=== PATIENT | female | born 1940 ===

== ENCOUNTER 2016-09-12 20:24 | Inpatient (IN) | payer MEDICARE, MEDICAID ==
[~2016-09-12] VITALS: Ht 152.4 cm; Wt 56.2 kg
[2016-09-12 20:20] VITALS: O2SAT 100
[~2016-09-12 20:24] MED LIST: ASPI81TA2 PO; CLOP75TA PO; GABA300C PO; INSU100C4 SQ; INSU3INS3 SUBQ; LINA5TAB PO; PREG150C PO; Succinylcholine Chloride 20 mg/mL 5 mL Inj ONE
[2016-09-12] MEDS ORDERED: Norepinephrine 8,000 mCg/250 mL NS Premix IV ONE (20:28)
[2016-09-12 20:58] LABS: Mean Corpuscular Hemoglobin 28.9 pg (27.0-35.0); Mean Corpuscular Volume 85.8 fL (81-100)
[2016-09-12 20:59] LABS: Platelet Count 201 bil/L (150-400)
[2016-09-12] MEDS ORDERED: Nitroglycerin 50,000 mcg/250 mL D5W Premix IV ONE (20:59)
[2016-09-12] MEDS ORDERED: Heparin 1,000 Units/500 mL NS Premix IV ONE ×2 (20:59→21:30)
[2016-09-12] MEDS ORDERED: Heparin 1,000 Unit/mL 10 mL Inj ONE (21:00)
[2016-09-12] MEDS ORDERED: Heparin 10,000 Unit/1,000 mL NS Premix IV ONE (21:00)
--- NOTE | 2016-09-12 21:07 | DRSVH ---
PROCEDURE: X-RAY CHEST ONE VIEW, PORTABLE ([id number]) INDICATIONS: CENTRAL LINE ET TUBE PLACEMENT TECHNIQUE: One view of the chest was acquired. COMPARISON: None. FINDINGS: Surgical changes and devices: Central venous catheter projects to distal SVC via a right subclavian approach. ET tube projects approximately 6.6 cm superior to the akbar. Lungs and pleura: No pleural effusions or pneumothorax. Lungs are clear. Mediastinum: Mediastinal contours appear normal. Heart size is normal. Bones and chest wall: No suspicious bony lesions. Overlying soft tissues appear unremarkable. IMPRESSION: ET tube 6.6 cm superior to the akbar. Dictated by: Anya Hunt MD, PhD on 09/12/2016 at 21:05 Approved by: Anya Hunt MD, PhD on 09/12/2016 at 21:06
[2016-09-12 21:13] LABS: INR 1.05 ratio
[2016-09-12 21:18] LABS: BASOPHILS % (AUTO) 1 % (0-3); EOSINOPHILS % (AUTO) 1 % (0-5); MONOCYTES % (AUTO) 5 % (4-12); NEUTROPHILS % (AUTO) 61 % (40-74)
--- NOTE | 2016-09-12 21:23 | ED.REPORT ---
HPI-Cardiac Arrest Date of Service September 12, 2016 ED Provider: Siddhartha Bright MD The pt is a 75 y/o female w/ a hx of HTN and diabetes presenting to the ED via EMS due to cardiac arrest. The pt called her daughter three days ago acting strangely and asking who she was talking to, which caused her daughter to call for a welfare check. EMS arrived at 1928 today and reports her looking around but was unresponsive. They have given her one round of epinephrine and bicarbonate. No paralytics were administered. Her family reports the pt living by herself and taking aspirin and Calvex. Nursing Notes Stated Complaint: STEMI Chief Complaint: Critical Care/Intubated Nursing Notes Reviewed: Yes ([employer], [employer] not reconciled) Allergies: Coded Allergies: codeine (Verified Allergy, Severe, headache and vomiting, 06/19/09) Uncoded Allergies: Nonsteroidal Anti-Inflammatory Agts (Allergy, Severe, rash (certain NSAID 's OK), 08/21/09) apples/oranges (Allergy, Severe, Unknown, 08/21/09) novacaine (Allergy, Severe, unknown- as a child had severe reaction, ) Scheduled Aspirin-Expunged Drug, Do Not Renew! (Aspirin-Expunged Drug, Do Not Renew!) 81 Mg Tab.chew 81 MG PO DAILY Clopidogrel-Expunged Drug, Do Not Renew! (Clopidogrel-Expunged Drug, Do Not Renew!) 75 Mg Tablet 75 MG PO DAILY Gabapentin-Expunged Drug, Do Not Renew! (Neurontin-Expunged Drug, Do Not Renew! ) 300 Mg Capsule 300 MG PO BID Insulin GLARGine-Expunged Drug, Do Not Renew! (Lantus-Expunged Drug, Do Not Renew!) 3 Ml Syringe 21 ML SQ HS Linagliptin-Expunged Drug, Do Not Renew! (Tradjenta-Expunged Drug, Do Not Renew! ) 5 Mg Tablet 5 MG PO DAILY Pregabalin-Expunged Drug, Do Not Renew! (Lyrica-Expunged Drug, Do Not Renew!) 150 Mg Capsule 100 MG PO DAILY Miscellaneous Medications Insulin ASPART-Expunged Drug, Do Not Renew! (Novolog-Expunged Drug, Do Not Renew !) 3 Ml Syringe 0 SUBQ sliding scale General Time Seen by Provider: 21:00 Chief Complaint Cardiac arrest in ED Hx Obtained From: Daughter, EMS Arrived By: Ambulance Onset Occurred: 1 - 4 hours ago Symptom Duration: Since onset Recent Healthcare: No recent hospitalization, Recent doctor visit Past Medical History Past Medical History HTN Diabetes Past Surgical History None reported Smoking History Unknown if Ever Smoker Social History Other Social History: Good social support Ambulatory Status Independent Review of Systems Unable to Obtain ROS Patient condition Physical Exam Initial Vital Signs Vital Signs (First) Date Time Temp Pulse Resp B/P Pulse Ox O2 Delivery O2 Flow Rate FiO2 09/12/16 20:20 100 BP 56/42 Pulse 128 SPO2 80 RR 18-20 Rectal temp 31.6 Initial VS: Reviewed (See paper chart), Vital signs abnormal Appearance / Presentation: Positive: Frail, Pale Respiratory / Chest: Breath sounds = bilat Resp Distress / Stridor: Positive: Resp distress severe Spontaneous breathing Lungs are clear Cardiovascular: Peripheral circulation NL Heart Rate / Rhythm: Positive: Tachycardia Unable to hear heart tones easily Weakly palpable femoral pulse Abdomen: Atraumatic, Soft, Non-tender Head / Eyes: Normocephalic, No periorbital swelling Pupils are fixed Neck: Atraumatic, Full range of motion Back: Atraumatic Skin: Intact, No swelling Feels cold Mental Status: Positive: Unresponsive No neurologic effort Rectum / Perineum: No lesions, No mass Nurse reports small amount of rectal bleeding Interpretation & Diagnostics Lab Results Interpretation Result Diagram: 09/12/16204409/12/162044 Test 09/12/16 20:45 09/12/16 20:50 09/12/16 20:56 White Blood Count 25.3th/mm3 (3.8-10.1) Red Blood Count 4.29mil/mm3 (3.90-5.20) Hemoglobin 12.4g/dL (12.0-15.6) Hematocrit 36.8% (35.0-46.0) Mean Corpuscular Volume 85.8fL (81-100) Mean Corpuscular Hemoglobin 28.9pg (27.0-35.0) Mean Corpuscular Hemoglobin Concent 33.7% (32.0-37.0) Red Cell Distribution Width 13.8% (12.3-15.4) Platelet Count 201bil/L (150-400) Neutrophils (%) (Auto) 61% (40-74) Lymphocytes (%) (Auto) 28% (14-46) Monocytes (%) (Auto) 5% (4-12) Eosinophils (%) (Auto) 1% (0-5) Basophils (%) (Auto) 1% (0-3) Band Neutrophils % 4% (1-5) Prothrombin Time 11.2sec (8.1-12.5) Prothromb Time International Ratio 1.05ratio Activated Partial Thromboplast Time 34.2sec (22.8-33.0) Sodium Level 141mEq/L (134-144) Potassium Level 4.6mEq/L (3.5-5.2) Chloride Level 100mEq/L (97-108) Carbon Dioxide Level 3mmol/L (18-29) Blood Urea Nitrogen 59mg/dL (8-27) Creatinine 3.01mg/dL (0.57-1.00) Estimat Glomerular Filtration Rate 22mL/min (>59) Glucose Level 741mg/dL (60-99) Lactic Acid Level 3.0mmol/L (0.4-2.0) Calcium Level 9.1mg/dL (8.5-10.1) Magnesium Level 2.9mg/dL (1.6-2.6) Total Bilirubin 0.5mg/dL (0.0-1.2) Aspartate Amino Transf (AST/SGOT) 222U/L (0-50) Alanine Aminotransferase (ALT/SGPT) 99U/L (0-32) Alkaline Phosphatase 249U/L (25-165) Troponin T 6.09ug/L (0.0-0.011) Total Protein 5.3g/dL (6.4-8.4) Albumin 2.8g/dL (3.4-5.0) Thyroid Stimulating Hormone (TSH) 3.210uIU/mL (0.450-4.500) Urine Color Yellow (YELLOW) Urine Appearance Turbid (CLEAR,HAZY) Urine pH 6.0 (5.0-8.0) Urine Specific [place] 1.025 (1.003-1.035) Urine Protein 100mg/dL (NEG,TRACE) Urine Glucose (UA) 1000mg/dL (NEGATIVE) Urine Ketones 80mg/dL (NEGATIVE) Urine Occult Blood Large (NEGATIVE) Urine Nitrite Negative (NEGATIVE) Urine Bilirubin Negative (NEGATIVE) Urine Urobilinogen Normalmg/dL (NORMAL) Urine Leukocyte Esterase Trace (NEGATIVE) Urine RBC 3-10/hpf (0-2) Urine WBC 11-50/hpf (0-5) Urine Epithelial Cells Few/hpf (NONE-MOD) Urine Crystals None seen (NONE SEEN) Urine Bacteria Many/hpf (NONE-FEW) Urine Hyaline Casts None/lpf (NONE) Urine Granular Casts None seen (NONE SEEN) Urine Waxy Casts None seen (NONE SEEN) Urine Red Blood Cell Casts None seen (NONE SEEN) Urine White Blood Cell Casts None seen (NONE SEEN) Urine Mucus None seen (None Seen) Urine Trichomonas None seen (NONE SEEN) Urine Yeast None (NONE SEEN) Urinalysis Comment None Urine Culture Reflexed Indicated Hold [place] Top Tube Received (Received) Lab Results Interpretation: CBC severe leukocytosis CMP severe metabolic acidosis, renal failure, severe hyperglycemia-this is a component of DKA Troponin severely elevated Lactic acid elevated blood cultures 2 pending Urinalysis is returned with markers of infection ECG Interpretation ECG Interpretation: Inferior STEMI Rate 71 Normal sinus rhythm Time: 21:01 Interpreted by: ED physician X-Ray Chest Interpretation Chest Xray Interpretation: IMPRESSION: ET tube 6.6 cm superior to the akbar. Dictated by: Anya Hunt MD, PhD on 09/12/2016 at 21:05 Approved by: Anya Hunt MD, PhD on 09/12/2016 at 21:06 View: Portable, 1 view Interpretation / Wet Read by: Interpret - Radiologist Procedures Central Line Placement Time: 20:39 Procedure Performed by: ED physician Consent / Setup / Site Prep: Informed consent provided, Consent from patient , Time-out performed, Oxygen administered, Pulse oximeter applied, environmental monitoring specialist applied, Hand hygiene observed, Standard surgical scrub, Sterile drapes applied, Position supine Skin Preparation Agent: Hibiclens - Chlorhexidine Local Anesthesia: Other Procedural Sedation/Analgesia: Sedation: Other Side / Location / Ultrasound: Subclavian right Catheter / Lumen / Technique: Triple lumen, Seldinger technique Central Line Tip Location: Cath tip good position in the SVC Post-Procedure / Complications: Antibiotic oint applied, Dressing placed, Condition improved, Tolerated procedure well, Patient stable Re-Eval/Medical Decision Med Decision/Clinical Course This is a 75-year-old female from all history is obtained via EMS in the family. The family consists of 2 daughters and the patient was last known normal 1 month ago, and lives up her upper. Apparently several days ago she called one daughter with a very strange phone call and then hung up. The daughter then told the second daughter about that phone call today, so the second daughter which should follow-up and see the patient was okay-but the patient did not respond any phone calls, so 911 was contacted perform a welfare check. When EMS arrived the patient had her eyes open looking around but was altered, not able to answer any questions, they cannot feel any pulses. We will , they initiated CPR. A Chaparro airway was placed, the patient received epi 1, bicarbonate 1, and pulses were regained, but the patient remained altered. On arrival, the patient is being ventilated via Chaparro airway with a positive end- tidal CO2 waveform, but remains unresponsive. We had a hard time defining initial pulses, CPR was briefly reassumed-and then pulses were obtained. The patient could have spontaneous respirations, slightly tachypneic, had good end-tidal CO2, but remains profoundly hypotensive with initial blood pressures in the 50s. She felt cold, and ultimately a rectal temperature was obtained that was profoundly hypothermic. An EKG was obtained on arrival and demonstrates an inferior ST segment elevation ID, so a STEMI process was activated. She received warmed fluids through the level I, a bear hugger, and with the hypotension was started on a nor epi drip. She had an IO and a marginal IV. Possibly, and I placed a right subclavian central line for better access. Respiratory is unable to obtain an ABG due to the hypotension and cold extremities. Anesthesia came in and was able place of a line, at this point the patient was warming up, her blood pressures are improving regarding getting a good measurable pulse ox. Chest x-ray demonstrated no complications from the central line placement and the lines to be in good position. A Portillo was placed, the time of Portillo was being placed there was a small amount of rectal blood present of uncertain significance. The patient remained unresponsive throughout. I performed a rapid sequence intubation and replaced the Chaparro airway with an endotracheal tube without difficulty. Cardiology arrived, we discussed the situation with the family, elected to pursue Pellet Post Inspector intervention in this setting. The patient was taken of the labor mediator prior to full results of laboratory studies. The patient was noted to be hyperglycemic by EMS, and a recheck in the department remained hyperglycemic. I called the cardiac labor mediator with results as the labs returned and demonstrate severe metabolic acidosis, probable component of DKA as well as lactic acidosis , a normal potassium (that will likely require replacement as the acidosis resolves), and with his renal failure with probable acute kidney injury is a likely etiology. The patient's troponin is also severely elevated. I discussed the case with the on-call hospitalist. TSH was normal. The hypothermia protocol was not initiated initially-admits to trying to sort out if the unintentional hyperthermia and it occurred may eventually been the reason for the decreased mental status, so the patient warmed up to go to the Pellet Post Inspector and is improving. Given the unusual circumstances I am deferring Further application and re-initiation of hypothermia to the hospitalist following the labor mediator process, and it may be decided as to whether or not there may be neurologic improvement as the patient is further managed. Of note the family indicates the patient has no torso leaning noncompliant with medications and they may not be taking any of her diabetic medications. Source of Hx: Old records, EMS Consultation : Referral / Consult Name: Harpreet Llamas MD Consulted With: Hospitalist Call Returned at: 21:31 Wall Attendant: Will see patient, Agrees with eval, Agrees with plan, Accepts admit Differential Diagnosis: Positive: Cardiopulmonary arrest, Myocardial infarction , Negative: Abdominal aortic aneurysm, Overdose, Tension pneumothorax, Traumatic cardiac arrest Counseled Regarding: Diagnosis, Lab results, Need for admission Discharge & Departure Impression: Primary Impression: Cardiac arrest Additional Impressions: STEMI (ST elevation myocardial infarction) Involved coronary artery: other anterior wall coronary artery Qualified Code : I21.09 - ST elevation (STEMI) myocardial infarction involving other coronary artery of anterior wall Hypothermia Encounter type: initial encounter Qualified Code: T68.XXXA - Hypothermia, initial encounter Rectal bleeding Hyperglycemia DKA (diabetic ketoacidoses) Diabetes mellitus type: other specified (including MATT) Metabolic acidosis Lactic acidosis Elevated troponin Urinary tract infection Urinary tract infection type: acute cystitis Hematuria presence: without hematuria Qualified Code: N30.00 - Acute cystitis without hematuria Acute kidney injury Disposition: ADMITTED TO HOSPITAL All VS Reviewed: Yes Condition: Stable Referrals: Jenni Ortiz PA-C (PCP) Crit Care Except Billable Proc Time Spent: 30-74 minutes Services Performed: Patient management by me, Time spent at bedside, Reviewing test results, Reviewing imaging, Discussing patient care, Documentation in record, Time with fam/surrogate, Other Scribe Attestation Portions of this note were transcribed by Francisco Javier Moseley. I, Dr. Bright personally performed the history, physical exam and medical decision-making; I reviewed and confirmed the accuracy of the information in the transcribed note. Signed by : Villa Apaircio, 09/12/16 and 2002. Siddhartha Bright MD September 12, 2016 21:23 Francisco Javier Moseley September 12, 2016 21:57
[2016-09-12 21:36] LABS: APPEARANCE,URINE TURBID (CLEAR,HAZY); COLOR,URINE YELLOW (YELLOW); OCCULT BLOOD,URINE LARGE (NEGATIVE); UROBILINOGEN,URINE NORMAL (NORMAL)
[2016-09-12 21:37] VITALS: BP 126/83; PULSE 86; RESP 18; O2SAT 97
[2016-09-12 21:39] LABS: Magnesium 2.9 mg/dL (1.6-2.6)
[2016-09-12] MEDS ORDERED: Sodium Bicarb (50 mEq) 8.4% 1 mEq/mL 50 mL Syringe ONE ×3 (21:47→22:07)
[2016-09-12 21:48] LABS: TROPONIN T 6.09 ug/L (0.0-0.011)
[2016-09-12] MEDS ORDERED: fentaNYL-PF 50 mCg/mL 2 mL Inj ONE (21:51)
[2016-09-12] MEDS ORDERED: Polyethylene Glycol (PEG) 17 Gm Powder PO PRN (22:30)
[2016-09-12] MEDS ORDERED: Ondansetron 2 mg/mL 2 mL Inj IVPUSH PRN ×2 (22:30→23:30)
[2016-09-12] MEDS ORDERED: Alum-Mag Hydrox-Simeth 30 mL Suspension PO PRN (22:30)
[2016-09-12] MEDS ORDERED: 0.9% Sodium Chloride 1,000 ML IV SCH (22:30)
--- NOTE | 2016-09-12 22:46 | PCM.HPMED ---
Subjective Date of Service September 12, 2016 Primary Provider: Admitting Physician: Rodriguez Condon MD Primary Care Physician: Jenni Ortiz PA-C Attending Physician: Rodriguez Condon MD Admit Status: From the Emergency Department, Full Admit, Critical Care Chief Complaint: Cardiac Arrest History of Present Illness: Fernanda Mcgee is a 75 yo female with Hypertension, Fibromyalgia, Chronic anemia and diabetes presenting to [facility] emergency department via EMS due to cardiac arrest. The pt called her daughter three days ago and patient was acting strangely and asking who she was talking to and hanged up. Son tried calling her home but no answer so the daughter in law called for a welfare check. The son last spoke to her on Mother's Day and she mentioned she was sick but did not give any further details. EMS arrived at 1928 today and reports her looking around but was unresponsive. CPR was initiated. They have given her one round of epinephrine and bicarbonate. No paralytics were administered. She was intubated in the field and brought to [facility] for evaluation Patient smokes daily and is a Diabetic on insulin. Lives alone. No history of illicit drugs or Alcoholism Case discussed with Dr Handley, EKG showed ST elevation triggering a STEMI alert and Dr Mckeon took patient to the manager labor delivery. Several labs abnormalities noted with hyperglycemia and Renal failure noted. Patient admitted to the ICU Review of Systems: unable to obtained due to sedation Allergies Coded Allergies: codeine (Verified Allergy, Severe, headache and vomiting, 06/19/09) Uncoded Allergies: Nonsteroidal Anti-Inflammatory Agts (Allergy, Severe, rash (certain NSAID 's OK), 08/21/09) apples/oranges (Allergy, Severe, Unknown, 08/21/09) novacaine (Allergy, Severe, unknown- as a child had severe reaction, ) Home Medications From [facility], not yet confirmed Fernanda Mcgee [id number] 1940 08/07/2015 09:40 AM 05/01 allopurinol 100 mg tablet take 1 Tablet by oral route every morning aspirin 81 mg tablet,delayed release take 1 tablet by oral route every day Crestor 10 mg tablet take 1 tablet by oral route every day gabapentin 300 mg capsule take 2 capsule by oral route 3 times every day Invokana 100 mg tablet TAKE 1 TABLET BY MOUTH EVERY DAY Lantus Solostar 100 unit/mL (3 mL) subcutaneous insulin pen inject 20 units subQ at bedtime Lyrica 150 mg capsule take 1 capsule by oral route 2 times every day meloxicam 7.5 mg tablet take 1 tablet by oral route every day as needed Novolog Flexpen 100 unit/mL subcutaneous inject 20 units with each meal Tradjenta 5 mg tablet take 1 tablet by oral route every day PMH Diabetes Type 2 with peripheral neuropathy Hypertension Carpal tunnel Fibromyalgia Chronic anemia PVD with claudication Nicotine dependence with ongoing smoking . Surgical History Left Total Hip replacement Family History unable to be obtained due to sedation Social History Hx Alcohol Use: No Hx Substance Use: No Hx Tobacco Use: Yes Smoking Status: Heavy Tobacco Smoker Living Arrangement: Alone Exam Vital Signs Vital Sign - Last Date Time Temp Pulse Resp B/P Pulse Ox O2 Delivery O2 Flow Rate FiO2 09/12/16 21:37 86 18 126/83 97 Mechanical Ventilator Exam General: Sedated on Ventilator Eyes: PERRLA, Scleral Anicteric ET tube in place Mouth: Mouth Normal, Mucous Membranes Moist/[place] Neck: Supple, no Thyromegaly, trachea central. Chest & Lungs: Clear to auscultation & percussion, No adventitious breath sounds, no crackles, no wheeze Cardiovascular: Normal S1, Normal S2, No Murmurs/Rubs/Gallops, Regular Rate/ Rhythm, (No JVD, no peripheral edema) Pulses: Radial (present and equal), Dorsalis Pedi (present and equal) Abdomen: Soft, Non-tender, Non-distended, Normoactive bowel tones. Musculoskeletal: Unremarkable. Normal range of motion, no swollen or erythematous joints Extremities: No edema, no cyanosis, no clubbing. Skin: No rashes. Warm and dry, no erythematous areas Neurological: Sedated but pupil pinpoint and fixed with deviation to the left and upwards Lymphatic: Lymph nodes Cervical and Axillary not palpable Lab and Diagnostics Labs Laboratory Tests Test 09/12/16 20:45 09/12/16 20:50 09/12/16 20:55 09/12/16 20:56 White Blood Count 25.3th/mm3 (3.8-10.1) Red Blood Count 4.29mil/mm3 (3.90-5.20) Hemoglobin 12.4g/dL (12.0-15.6) Hematocrit 36.8% (35.0-46.0) Mean Corpuscular Volume 85.8fL (81-100) Mean Corpuscular Hemoglobin 28.9pg (27.0-35.0) Mean Corpuscular Hemoglobin Concent 33.7% (32.0-37.0) Red Cell Distribution Width 13.8% (12.3-15.4) Platelet Count 201bil/L (150-400) Neutrophils (%) (Auto) 61% (40-74) Lymphocytes (%) (Auto) 28% (14-46) Monocytes (%) (Auto) 5% (4-12) Eosinophils (%) (Auto) 1% (0-5) Basophils (%) (Auto) 1% (0-3) Band Neutrophils % 4% (1-5) Prothrombin Time 11.2sec (8.1-12.5) Prothromb Time International Ratio 1.05ratio Activated Partial Thromboplast Time 34.2sec (22.8-33.0) Sodium Level 141mEq/L (134-144) Potassium Level 4.6mEq/L (3.5-5.2) Chloride Level 100mEq/L (97-108) Carbon Dioxide Level 3mmol/L (18-29) Blood Urea Nitrogen 59mg/dL (8-27) Creatinine 3.01mg/dL (0.57-1.00) Estimat Glomerular Filtration Rate 22mL/min (>59) Glucose Level 741mg/dL (60-99) Lactic Acid Level 3.0mmol/L (0.4-2.0) Calcium Level 9.1mg/dL (8.5-10.1) Magnesium Level 2.9mg/dL (1.6-2.6) Total Bilirubin 0.5mg/dL (0.0-1.2) Aspartate Amino Transf (AST/SGOT) 222U/L (0-50) Alanine Aminotransferase (ALT/SGPT) 99U/L (0-32) Alkaline Phosphatase 249U/L (25-165) Troponin T 6.09ug/L (0.0-0.011) Total Protein 5.3g/dL (6.4-8.4) Albumin 2.8g/dL (3.4-5.0) Thyroid Stimulating Hormone (TSH) 3.210uIU/mL (0.450-4.500) Urine Color Yellow (YELLOW) Urine Appearance Turbid (CLEAR,HAZY) Urine pH 6.0 (5.0-8.0) Urine Specific [place] 1.025 (1.003-1.035) Urine Protein 100mg/dL (NEG,TRACE) Urine Glucose (UA) 1000mg/dL (NEGATIVE) Urine Ketones 80mg/dL (NEGATIVE) Urine Occult Blood Large (NEGATIVE) Urine Nitrite Negative (NEGATIVE) Urine Bilirubin Negative (NEGATIVE) Urine Urobilinogen Normalmg/dL (NORMAL) Urine Leukocyte Esterase Trace (NEGATIVE) Urine RBC 3-10/hpf (0-2) Urine WBC 11-50/hpf (0-5) Urine Epithelial Cells Few/hpf (NONE-MOD) Urine Crystals None seen (NONE SEEN) Urine Bacteria Many/hpf (NONE-FEW) Urine Hyaline Casts None/lpf (NONE) Urine Granular Casts None seen (NONE SEEN) Urine Waxy Casts None seen (NONE SEEN) Urine Red Blood Cell Casts None seen (NONE SEEN) Urine White Blood Cell Casts None seen (NONE SEEN) Urine Mucus None seen (None Seen) Urine Trichomonas None seen (NONE SEEN) Urine Yeast None (NONE SEEN) Urinalysis Comment None Urine Culture Reflexed Indicated Hold [place] Top Tube Received (Received) Received (Received) Microbiology 09/12/16 Blood Culture, Received Pending 09/12/16 Urine Culture, Received Pending Result Diagram: 09/12/[id number]/12/162044 X-Rays, CTs and MRIs X-RAY CHEST ONE VIEW, PORTABLE 09/12 IMPRESSION: ET tube 6.6 cm superior to the akbar. Dictated by: Anya Hunt MD, PhD on 09/12/2016 at 21:05 Approved by: Anya Hunt MD, PhD on 09/12/2016 at 21:06 Assessment & Plan Fernanda Mcgee is a 75 yo female with Hypertension, Fibromyalgia, Chronic anemia and diabetes presenting to [facility] emergency department via EMS due to cardiac arrest. 1. Acute Encephalopathy. Present on admission Unresponsive likely due to anoxic encephalopathy. Etiology also metabolic from DKA and subsequent Cardiac arrest - continue Cooling protocol and monitor neurologically - treatment will be to treat the underlying cause - consider EEG and Neurology consult after cooling protocol 2 ST Elevation Inferior Myocardial infarction s/p Cardiac Arrest. Present on admission Three Vessel disease as per discussion with Dr Mckeon. - continue management as per Dr Mckeon and Cardiology team - referral for bypass surgery if when stable 3 Diabetic Ketoacidosis with Diabetes Type 2. Present on admission Poor control with patient on Lantus and Novolog as outpatient - DKA Insulin protocol - checking A1c - checking Anion gap every 4 hours, when gap closed then will discontinue Insulin drip 4 Acute Hypoxic Respiratory Failure. Present on admission Due to Cardiac arrest. No evidence of Pulmonary infection or edema - continue Ventilator support - Versed and Fentanyl drips - ABG PRN with adjustments 5 Urinary tract infection. Present on admission - Blood cultures, Urine culture - continue Ceftriaxone 1 grams IV daily 6 Acute Kidney Injury with metabolic acidosis. Present on admission Likely pre renal azotemia with possible Acute tubular necrosis. Possible Chronic kidney disease due to Diabetic nephropathy and Hypertensive Nephrosclerosis - continue bicarb drip due to contrast exposure - continue Bicarb drip - consider Nephrology consult 7 Elevated transaminitis. Present on admission Likely due to shock liver - continue to monitor levels 8 Nicotine Dependence. - will cemetery counselor patient concerning cessation when extubated - Acetaminophen as needed for mild pain/fever/headache - Bowel regimen as needed - Antiemetic as needed Patient admitted under inpatient status with expected length of stay > 2 midnights for severity of present symptoms, complexities of treatment plan and risk for adverse event . Resuscitation Status: CPR: Attempt Resuscitation Time spent 1 hour critical time spend not including procedure time Harpreet Llamas MD September 12, 2016 22:46
[2016-09-12] MEDS ORDERED: fentaNYL 2,500 mCg/250 mL Premix IV ONE (22:59)
[2016-09-12 23:15] VITALS: BP 173/109; PULSE 90; RESP 18
[2016-09-12] MEDS ORDERED: Insulin Human REGular 300 Unit/3 mL Inj IV PRN (23:20)
[2016-09-12] MEDS ORDERED: Dextrose 10% 250 ML IV PRN (23:25)
[2016-09-12] MEDS: cefTRIAXone Inj 1,000 MG in Dextrose 5% Minibag Plus 50 ML IV SCH (23:27)
[2016-09-12] MEDS ORDERED: Sodium Bicarb 8.4% Inj 150 MEQ in Dextrose 5% 1,000 ML IV SCH (23:28)
[2016-09-12] MEDS ORDERED: 0.9% Sodium Chloride 250 ML IV PRN (23:28)
[2016-09-12] MEDS ORDERED: 0.9% Sodium Chloride 1,000 ML IV PRN (23:28)
[2016-09-12 23:30] VITALS: BP 91/44; PULSE 90; RESP 20; O2SAT 98
[2016-09-12] MEDS ORDERED: Atropine 1 mg/10 mL (Code) Syringe IVPUSH PRN (23:30)
[2016-09-12] MEDS ORDERED: fentaNYL-PF 50 mCg/mL 2 mL Inj IV PRN (23:30)
[2016-09-12] MEDS: Insulin Human REGular 100 Units/100 mL NS IV SCH ×2 (23:58)
[2016-09-13] VITALS (16 sets, daily range): BP systolic 81–128; BP diastolic 31–64; PULSE 56–90; RESP 2–20; O2SAT 92–100
--- NOTE | 2016-09-13 00:11 | ABG ---
DateTimeAnalyzed 00:07:00 -_ pH ____7.008 - 7.350 7.450 pCO2 ___23.1__ -mmHg 35.0 45.0 pO2 168 -mmHg 69.0 116 HCO3- ____5.5__ -mmol/L 22.0 26.0 ABE __-25.0__ -mmol/L -2.0 2.0 tHb ___12.7__ -g/dL O2Hb ___95.8__ -% COHb ____1.3__ -% MetHb ____1.4__ -% sO2 ___98.5__ -% FIO2 ___60.0__ -% PEEP ____6.0__ -cmH2O Set_RR ___20.0__ -b/min Vt __380.0__ -L Drawn By MK - Date/Time Notified____ 00:10:00 -_ Spontaneous_RR ___20.0__ -b/min Oxygen Device 1 VENTILATOR - Notified By MK - Notified Whom _Fuimaono - B 760 -mmHg tO2 ___17.4__ -Vol% OrderingPhysicianInitials mf - Alirio test N/A -
[2016-09-13] MEDS ORDERED: Norepinephrine 8,000 mCg/250 mL NS Premix IV ONE (00:23)
[2016-09-13] MEDS: Cisatracurium 200,000 mCg/100 mL NS IV SCH ×4 (00:40→09:32)
[2016-09-13] MEDS ORDERED: D5W IV PRN (00:40)
[2016-09-13] MEDS ORDERED: fentaNYL-PF 50 mCg/mL 2 mL Inj IV PRN (00:40)
[2016-09-13] MEDS: NS IV SCH ×4 (00:40→18:50)
[2016-09-13] MEDS: FENTANYL IV SCH ×4 (00:40→18:50)
[2016-09-13] MEDS ORDERED: NITROGLYCERIN 50 MG/250 ML IV PRN (00:40)
[2016-09-13] MEDS ORDERED: 0.9% Sodium Chloride 500 ML IV PRN (00:40)
--- NOTE | 2016-09-13 01:30 | PCM.ADCARE ---
Advance Care Planning Note Purpose of Encounter: Active Diagnoses: Cardiac arrest and STEMI with triple vessel coronary disease Respiratory Failure on the ventilator Poor controlled Diabetes with DKA Acute Kidney Injury These active diagnoses are sufficient risk that focused discussion on advance car planning is indicated in order to allow the patient to thoughtfully consider personal goals of care and if situations arise that prevent the ability to personally give input to insure appropriate representation of their personal desires through documentation or informed surrogate decision makers Parties in Attendance: son (Jean-Pierre Turpin) and me Decisional Capacity: Good Goals of Care Determinations: I reviewed all the multiple organ failures and poor prognosis associated with all conditions mentioned above. Son is a former [employer] and EMT and is familiar with the current situation Patient has not assigned any power of staff attorney and the son feels he knows her well and patient would not want to be resuscitation and placed on any life support. Jean-Pierre wish for patient to be DNR. He will discuss any further decisions with the other siblings CODE STATUS: DO NOT RESUSCITATE Time Spent Adv.Care Planning: Total time spent [id number] in education and discussion directly related to Advance Care Plannin minutes Harpreet Llamas MD September 13, 2016 01:30
[2016-09-13] MEDS ORDERED: Amiodarone 150 mg/100 mL D5W Premix IV ONE (01:58)
[2016-09-13] MEDS ORDERED: Amiodarone 360 mg/200 mL D5W Premix IV ONE (01:59)
[2016-09-13] MEDS ORDERED: Amiodarone 150 mg/100 mL D5W IV ONE (02:20)
[2016-09-13] MEDS: Amiodarone 360 mg/200 mL D5W IV SCH ×3 (02:23→14:07)
[2016-09-13 03:06] LABS: Mean Corpuscular Hemoglobin 28.7 pg (27.0-35.0); Mean Corpuscular Volume 82.7 fL (81-100)
[2016-09-13 03:14] LABS: INR 1.26 ratio
--- NOTE | 2016-09-13 03:24 | NUR ---
CCU Admit note/hypothermia protocol (cooling phase) Seen patient at general labor s/p left heart cath, assisted general labor staff to transport pt to diagnostic for head ct, pt then moved to ccu rm 2017 @2300, started cooling protocol at 2310, pt already hypothermic core temp 31.5 C, no chilled NS given. Hypotensive sbp 80-90's, already on levo gtt, Pt opens eyes with abnormal gaze (looking far left), not following any commands at all, moves LE non-purposeful, garrido draining with low uo, arterial blood glucose 500's, Rt groin puncture site with CDI drsg, no hematoma, distal pulse weak and palpable. P: abg at midnight pH 7.008, pc02 23, p02 168, hc03 5.5, cvp low at 3, I: notified Hospitalist of results, started bicarb gtt 1.2 mls/kg/hr, vent set rate decreased to 14, NS 500 cc bolus started to keep cvp>10, started fentanyl gtt, bis 70's, added low dose propofol gtt sedation, inserted ogt to LIS, started insulin gtt per dka protocol. E: RASS -3, bp labile P: around 0200 pt has frequent ectopy (bigeminal, couplets, triplets) I: notified hospitalist w/ new order, given amiodarone 150mg bolus then at 1mg/min. Addendum: 09/13/16 at 0500 by BRI CID RN Addendum: P: labs at 0241 resulted with K 2.5, Na 149, anion gap 35,abg @ 0416 resulted with pH 6.966, pc02 27, p02 258, hc03 5.9. I: notified hospitalist of labs with new orders, given 1 amp bicarb IVP & increased bicarb gtt to 100 ml/hr, started kcl 40 meq IVP, vent changes per PHLEBOTOMY COORDINATOR (fio2 down to 0.30, increase VT to 400).
[2016-09-13] MEDS: Norepinephrine 8,000 mCg/250 mL NS Premix IV PRN ×7 (03:40→22:37)
[2016-09-13 04:17] LABS: Magnesium 2.4 mg/dL (1.6-2.6)
[2016-09-13] MEDS ORDERED: Potassium Chloride 40 mEq/100 mL Premix IV ONE (04:21)
--- NOTE | 2016-09-13 04:22 | ABG ---
DateTimeAnalyzed 04:18:00 -_ pH ____6.966 - 7.350 7.450 pCO2 ___27.4__ -mmHg 35.0 45.0 pO2 258 -mmHg 69.0 116 HCO3- ____5.9__ -mmol/L 22.0 26.0 ABE __-24.7__ -mmol/L -2.0 2.0 tHb ___10.1__ -g/dL O2Hb ___96.1__ -% COHb ____1.2__ -% MetHb ____1.6__ -% sO2 ___98.9__ -% FIO2 ___40.0__ -% PEEP ____8.0__ -cmH2O Set_RR ___14.0__ -b/min Vt __380.0__ -L Drawn By MK - Spontaneous_RR ___14.0__ -b/min Oxygen Device 1 VENTILATOR - Notified Whom Dr Fuimaono - B 761 -mmHg tO2 ___14.3__ -Vol% OrderingPhysicianInitials mf - Alirio test N/A -
[2016-09-13] MEDS ORDERED: KCl 40 mEq/100 mL IV Premix (K < 3 & Creat 2.1 - 2.9) IV ONE (04:30)
[2016-09-13 04:32] LABS: TROPONIN T 9.13 ug/L (0.0-0.011)
[2016-09-13] MEDS ORDERED: Sodium Bicarb (50 mEq) 8.4% 1 mEq/mL 50 mL Syringe ONE (04:40)
[2016-09-13] MEDS: Insulin Human REGular 100 Units/100 mL NS IV SCH ×6 (04:49→23:54)
[2016-09-13] MEDS ORDERED: Sodium Bicarb (50 mEq) 8.4% 1 mEq/mL 50 mL Syringe IVPUSH ONE (04:55)
--- NOTE | 2016-09-13 08:03 | CS94 ---
[place] [id number] DIAGNOSTIC CARDIAC CATHETERIZATION PATIENT: SANDRA BONNER : 1940 MR#: [id number] ADMIT: 09/12/2016 JOB ID: [id number] SERVICE DATE: 09/12/2016 PATIENT PROFILE: The patient is a 75 years old woman with history of diabetes mellitus and smoker. She presented with [id number] cardiopulmonary arrest. EKG showed acute inferoposterior myocardial infarction. PROCEDURE: 1. Retrograde left heart catheterization. 2. Selective coronary angiography. VASCULAR CLOSURE DEVICE: None. COMPLICATIONS: None. METHOD: Retrograde left heart catheterization was performed from the right groin under 1% lidocaine local anesthesia using a 6-Faroese sheath. Selective coronary angiogram was performed in multiple projections, including cranial and caudal angulations with hand injected contrast via JL4 and JR4 catheters. The JR4 catheter was used for left ventricular pressures. Right femoral angiogram was performed before sheath removal. Hemostasis was achieved by manual compression. The patient tolerated the procedure well. She was transferred to intensive care unit in stable condition. TOTAL CONTRAST USED: 35 cc. FLUOROSCOPY TIME: 2.7 minutes. TOTAL RADIATION DOSE: 86 milligray. RESULTS: 1. Selective coronary angiography: a. The left anterior descending artery and circumflex artery have common ostia. b. The left anterior descending artery is transapical and has long, 70 % to 80% stenosis in the mid portion. c. The codominant circumflex artery has diffuse severe stenosis with 80% to 90% stenosis in the mid and distal portions. The first obtuse marginal branch has 80% stenosis in the proximal portion. d. The codominant right coronary artery has diffuse severe stenosis of 80% to 90% stenosis in the proximal and mid portions. 2. Left ventricular pressure is 169/7 mmHg. Aortic pressure is 157/60 mmHg. 3. Left ventricular end-diastolic pressure is 17 mmHg. 4. There is a 10 mm pressure gradient across the aortic valve. 5. The right common femoral angiogram demonstrated severe eccentric 80% stenosis of the right common femoral artery with heavy calcification. The right superficial femoral artery has severe 95% stenosis in the proximal portion. The right profunda artery has minor irregularity. CONCLUSION: 1. Severe triple-vessel coronary artery disease. 2. There is a 10 mm pressure gradient across the aortic valve. 3. Left ventricular end-diastolic pressure is 17 mmHg. 4. Severe stenosis of the right common femoral artery and proximal portion of the right superficial femoral artery. MTDD
--- NOTE | 2016-09-13 08:32 | DRSVH ---
PROCEDURE: CT BRAIN WITHOUT CONTRAST ([id number]) INDICATIONS: cardiac arrest TECHNIQUE: Noncontrast 4.5 mm thick angled axial sections acquired from the foramen magnum to the vertex, with c oronal reformats. COMPARISON: None. FINDINGS: Image quality: Excellent. CSF spaces: Basal cisterns are patent. No extra-axial fluid collections. The ventricles are symmet isa in size and shape. Brain: No intracranial bleeds or masses. There is cerebral volume loss for age, with resultant vent ricular and sulcal prominence. There are periventricular and deep white matter chronic small vessel ischemic changes. There is intracranial internal carotid artery atherosclerosis. Left caudate hypod ensity is present. No priors are available for comparison. Skull and face: Calvarium and visualized facial bones appear intact, without suspicious lesions. Sinuses: Visualized sinuses and mastoids are clear. IMPRESSION: 1. Indeterminate left caudate hypodensity. Appearance is suggestive of late subacute/early chronic in farction. As clinically indicated, MRI may be obtained. No priors are available for comparison. 2. Mild atrophy and chronic microvascular ischemic changes. Dictated by: Jeanne Elizabeth M.D. on 09/13/2016 at 8:29 Approved by: Jeanne Elizabeth M.D. on 09/13/2016 at 8:30
--- NOTE | 2016-09-13 08:35 | PROCED ---
[address] [address] PROCEDURE NOTE PATIENT: SANDRA BONNER : 1940 MR#: [id number] ADMIT: 09/12/2016 JOB ID: [id number] DATE OF SERVICE: 09/12/2016 PREOPERATIVE DIAGNOSIS(ES): POSTOPERATIVE DIAGNOSIS(ES): SURGEON: Zhang Durán MD. PROCEDURE: Arterial line. INDICATION: Hypotension, status post cardiac arrest and cooling protocol. DESCRIPTION OF PROCEDURE: The patient is a 75-year-old lady, apparently found down and rushed to the hospital. The emergency department physician asked me to place an arterial line to aid in blood pressure monitoring, as they were enacting the cooling protocol status post cardiac arrest. The patient was intubated and sedated, and required no additional anesthesia. I prepped her right wrist for an arterial line in the radial artery. This was performed easily on one attempt using a 20-gauge Arrow catheter. The patient tolerated the procedure well, and there were no apparent complications. The patient was then was whisked away to the catheterization laboratory for further management.
--- NOTE | 2016-09-13 08:36 | ABG ---
DateTimeAnalyzed 08:31:00 -_ pH ____7.074 - 7.350 7.450 pCO2 ___33.7__ -mmHg 35.0 45.0 pO2 121 -mmHg 69.0 116 HCO3- ____9.4__ -mmol/L 22.0 26.0 ABE __-19.5__ -mmol/L -2.0 2.0 tHb ___10.2__ -g/dL O2Hb ___95.5__ -% COHb ____1.4__ -% MetHb ____1.5__ -% sO2 ___98.4__ -% FIO2 ___30.0__ -% PEEP ____8.0__ -cmH2O Set_RR ___14.0__ -b/min Vt __400.0__ -L Drawn By RC - Date/Time Notified____ 08:36:00 -_ Spontaneous_RR ___20.0__ -b/min Oxygen Device 1 VENTILATOR - Notified By RC - Notified Whom ___DR. KRANTHI - B 762 -mmHg tO2 ___14.0__ -Vol% Alirio test N/A -
[2016-09-13 08:48] LABS: Mean Corpuscular Hemoglobin 28.9 pg (27.0-35.0); Mean Corpuscular Volume 81.2 fL (81-100)
[2016-09-13 09:06] LABS: INR 1.18 ratio
--- NOTE | 2016-09-13 10:01 | PCM.PNCARD ---
Subjective Date of service September 13, 2016 Chief Complaint cardiac arrest History of Present Illness This is a 75 year old female with no known CAD until she came in yesterday with a cardiac arrest. Dr. Mckeon performed her heart catheterization and showed severe multi-vessel coronary disease but no 100% stenosis. She presented with an inferior STEMI and it is most likely she developed transient total occlusion of her proximal RCA which has a 90% stenosis. She was also found to have severe DKA. She has severe metabolic acidosis and electrolyte imbalance and acute renal failure. It is unsure how long she was down prior to medics arriving. There is a concern for significant anoxic brain injury. Because of this, no coronary intervention was performed. She is currently having her DKA corrected and she is on the hypothermia protocol. She had significant ectopy overnight so she was started on IV amiodarone. Her vitals otherwise have been stable but her pH is still severely depressed. She is obviously on sedation no neurological status cannot be assessed. Apparently as per the daughter, patient was not making a lot of sense this past weekend. She stated that she was not feeling well. Subjective: Cannot assess. Constitutional: Reports: Fever Exam Vital Signs Vital Sign - Last Date Time Temp Pulse Resp B/P Pulse Ox O2 Delivery O2 Flow Rate FiO2 09/13/16 08:30 33.0 69 2 106/44 100 Mechanical Ventilator 30 Intake and Output 09/12/16 09/12/16 09/13/16 Cumulative From/Thru 15:00 23:00 07:00 09/12/16 20:44 - 09/13/16 05:06 Intake Total 1751 ml 1751 ml Output Total 50 ml 50 ml Balance 1701 ml 1701 ml Intake Oral 0 ml 0 ml IV Total 1751 ml 1751 ml Output Urine Total 50 ml 50 ml Gastric Drainage Total 0 ml 0 ml # Bowel Movements 0 0 General: Other (sedated) Skin: Cool Head: Normocephalic Chest: Crackles Cardiac: Regular rhythm Abdomen: Abdomen soft Extremities: Cool Lab and Diagnostics Labs CBC Test 09/12/16 20:45 09/13/16 08:37 Neutrophils (%) (Auto) 61% (40-74) Lymphocytes (%) (Auto) 28% (14-46) Monocytes (%) (Auto) 5% (4-12) Eosinophils (%) (Auto) 1% (0-5) Basophils (%) (Auto) 1% (0-3) Band Neutrophils % 4% (1-5) White Blood Count 7.1th/mm3 (3.8-10.1) Red Blood Count 3.46mil/mm3 (3.90-5.20) Hemoglobin 10.0g/dL (12.0-15.6) Hematocrit 28.1% (35.0-46.0) Mean Corpuscular Volume 81.2fL (81-100) Mean Corpuscular Hemoglobin 28.9pg (27.0-35.0) Mean Corpuscular Hemoglobin Concent 35.6% (32.0-37.0) Red Cell Distribution Width 13.5% (12.3-15.4) Platelet Count 100bil/L (150-400) CMP Test 09/12/16 20:45 09/12/16 20:56 09/13/16 08:37 Thyroid Stimulating Hormone (TSH) 3.210uIU/mL Osmolality 368 Prealbumin 10mg/dL Hold [place] Top Tube Received Lactic Acid Level 1.6mmol/L Result Diagram: 09/13/16 0837 09/13/16 0241 Assessment & Plan Problems: (1) Cardiac arrest Plan: Based on all the data, I believe that she developed DKA prior to STEMI. With her chronic and severe multi-vessel CAD, she already had a low threshold to develop an acute myocardial infarction. With her severe DKA, she probably developed transient total occlusion of her RCA which caused her to have inferior STEMI and cardiac arrest. By the time diagnostic heart catheterization was performed she had CHANTAL-3 flow throughout her vessels. I agree that PCI would have not been appropriate in this particular situation and would have not provide any substantial benefit in regards with her mortality at this moment or with her quality of life. Moreover, her neurological status is unknown and there is a good probability that she has suffered anoxic brain injury as a result of her cardiac arrest. At this time, her prognosis is not great but we will have to wait until next week to have a better understanding of her neurological status. For now, I would simply continue with aspirin, statins, and clopidogrel. If she makes a remarkable recovery from this, then we can reconsider coronary revascularization when she is more stable. We will then consider adding other cardioprotective meds such as beta blockers and ACEi/ spironolactone which will depend on her renal function. I would recommend to complete the amiodarone protocol and discontinue it after 24 hours. If she continues to have venticular ectopy then we may consider restarting it but hopefully we can start her on beta blockers which should help as well. Status: Acute ICD Code: I46.9 (2) ST elevation myocardial infarction (STEMI) of inferior wall Plan: Resolved. Most likely secondary to DKA. No PCI was performed. Patient had CHANTAL-3 flow by the time diagnostic heart catheterization was performed. Continue with ASA, clopidogrel, and statins. Status: Resolved ICD Code: I21.19 (3) Multi-vessel coronary artery stenosis Plan: She has head severe CAD at least for months, most likely years. Awaiting echocardiogram to assess LVEF and LV wall motion and any other structural abnormalities. Status: Chronic ICD Code: I25.10 (4) DKA (diabetic ketoacidoses) Qualifiers: Diabetes mellitus type: other specified (including MATT) Plan: Currently being corrected with insulin/bicarb drip. Status: Acute ICD Code: E13.10 (5) Acute kidney injury Plan: Most likely exacerbated by cardiac arrest and DKA. Prior BMPs have shown normal renal function. Status: Acute ICD Code: N17.9 (6) Smoker Status: Acute ICD Code: F17.200 (7) Metabolic acidosis Status: Acute ICD Code: E87.2 VTE Mechanical Devices: Intermittant Pneumatic CD Resuscitation Status: CPR: Attempt Resuscitation Time spent Critical care time 1 hour Manuel Bird MD September 13, 2016 10:01
[2016-09-13 10:18] LABS: Magnesium 1.8 mg/dL (1.6-2.6)
[2016-09-13] MEDS ORDERED: KCl 40 mEq/100 mL (CENTRAL) 40 MEQ in IV Premix 1 EACH IV ONE (10:25)
--- NOTE | 2016-09-13 10:34 | NUR ---
NUTRITION ASSESSMENT: ASSESS:75 YO female found down following cardiac arrest, intubated in the field, admitted to CCU for ventilator management, hypothermia protocol. There is significant concern related to potential anoxic brain injury; neurological status cannot be determined at this time due to hypothermia protocol, sedation requirements. Cardiology believes that severe DKA precipitated STEMI. Code status: DNR. PMHx:HTN, fibromyalgia, DM2 with peripheral neuropathy, carpal tunnel, chronic anemia, PVD with claudication, nicotine dependence. DIET:NPO. LABS: Reviewed. Na 149, K+ 2.5, Chloride 110, CO2 4, BUN 55, Cr 2.56, Glu 559, Ca 8.0, AST 223, ALT 77, Alk Phos 291, TCK 1961, PAB 10. MEDICATIONS: Reviewed. Levophed, insulin, amiodarone, versed, fentanyl. Propofol rate currently 3.4 mL/hr, providing 90 lipid kcal. NUTRITION FOCUSED PHYSICAL ASSESSMENT: GI symptoms / stool: No stool reported.Dillan: None documented. Skin Integrity: No issues reported. ANTHROPOMETRICS: Current Wt: 56.2 kgBMI: 24.0 kg/m2. IBW: 45.5 kg (123.6% IBW) ESTIMATED NEEDS (VENT, KAYLIN, DKA, SHOCK LIVER): Calories: 1405 - 1967 kcal (25 - 35 kcal / kg BW) Protein: 56 - 67 g protein (1.0 - 1.2 g / kg BW) Fluid: Approx. 1405 mL (25 mL / kg BW) NUTRITION DIAGNOSIS: 1) Inadequate oral intake related to inability to consume sufficient energy, as evidenced by NPO / vent status. 2) Altered nutrition-related labs related to cardiac arrest, severe DKA, shock liver, KAYLIN, as evidenced by multiple electrolyte abnormalities, elevated BUN, CR, AST, ALT. INTERVENTION: 1) Recommend initiate enteral feeding during cooling phase of hypothermia protocol, if appropriate. It is not possible to recommend an enteral formula at this time due to extreme lab abnormalities. Consideration should be given to renal, diabetes or peptide-based formulas. 2) Recommend take propofol calories into consideration when calculating goal rate enteral feeding. MONITOR/EVALUATE: NPO / vent status, labs, GI/nutrition status. Follow up per high nutrition risk guidelines. Addendum: 09/13/16 at [address] Orders received for enteral feeding, with free water recommendations. I wrote the orders for Nepro to run at trophic rate 10 mL/hr, not to be initiated until rewarming begins tomorrow, per literature guidelines. Her labs are such that the renal formula seems most appropriate at this time; however, if her blood glucose cannot be controlled, the formula should be changed to Glucerna 1.5. RD will reassess Thursday morning and make further recommendations. Addendum: 09/13/16 at [address] Free water flush: 66 ml/hr.
[2016-09-13 10:40] LABS: TROPONIN T 10.12 ug/L (0.0-0.011)
[2016-09-13] MEDS ORDERED: GABA-502 PO (11:19)
[2016-09-13] MEDS ORDERED: LINA5TAB PO (11:19)
[2016-09-13] MEDS ORDERED: INSU100I13 SUBQ (11:19)
[2016-09-13] MEDS ORDERED: INSU3INS3 SUBQ (11:19)
[2016-09-13] MEDS ORDERED: Sodium Bicarb 8.4% Inj 150 MEQ in Water Sterile for Injection 1,000 ML IV ONE (11:20)
[2016-09-13] MEDS ORDERED: CLOP75TA28 PO (11:22)
[2016-09-13] MEDS ORDERED: INSU100I (11:22)
[2016-09-13] MEDS ORDERED: ASPI-973 PO (11:22)
--- NOTE | 2016-09-13 11:55 | ABG ---
DateTimeAnalyzed 11:50:00 -_ pH ____7.166 - 7.350 7.450 pCO2 ___32.8__ -mmHg 35.0 45.0 pO2 ___94.4__ -mmHg 69.0 116 HCO3- ___11.4__ -mmol/L 22.0 26.0 ABE __-15.9__ -mmol/L -2.0 2.0 tHb ___10.6__ -g/dL O2Hb ___95.0__ -% COHb ____1.6__ -% MetHb ____1.5__ -% sO2 ___98.0__ -% FIO2 ___30.0__ -% PEEP ____8.0__ -cmH2O Set_RR ___14.0__ -b/min Vt __450.0__ -L Drawn By RC - Date/Time Notified____ 11:55:00 -_ Spontaneous_RR ___15.0__ -b/min Oxygen Device 1 VENTILATOR - Notified By RC - Notified Whom ___PARIMI - B 762 -mmHg tO2 ___14.3__ -Vol% Alirio test N/A -
--- NOTE | 2016-09-13 12:21 | DRSVH ---
PROCEDURE: X-RAY CHEST ONE VIEW, PORTABLE ([id number]) INDICATIONS: r/o pneumo TECHNIQUE: One view of the chest was acquired. COMPARISON: None. FINDINGS: Surgical changes and devices: Nasogastric tube, endotracheal tube and right-sided PICC are unchanged. Lungs and pleura: No pleural effusions or pneumothorax. Minimal appearance of bibasilar streaky opac ities. Mediastinum: Mediastinal contours appear normal. Heart size is normal. Bones and chest wall: No suspicious bony lesions. Overlying soft tissues appear unremarkable. IMPRESSION: Minimal bibasilar streaky opacities. This could be advertising sales representative of atelectasis versus d eveloping airspace disease such as pneumonia. Dictated by: Jeanne Elizabeth M.D. on 09/13/2016 at 12:17 Approved by: Jeanne Elizabeth M.D. on 09/13/2016 at 12:19
[2016-09-13] MEDS: Vasopressin Inj 20 UNIT in 0.9% Sodium Chloride 100 ML IV SCH ×2 (12:43→22:08)
[2016-09-13] MEDS: Heparin 5,000 Unit/mL Inj SUBQ SCH ×2 (12:44→18:03)
--- NOTE | 2016-09-13 12:54 | DRSVH ---
[facility] [address] [place] [address] Echocardiogram Report Name: SANDRA BONNER LStudy Date: 09/13/2016 Height: 60 in Hospital Exam Location: [facility] Weight: 124 lb Gender: Female BSA: 1.5 m2 : 1940 Age: 75 yrs BP: 82/46 mmHg Ordering Physician: Performed By: ALEXANDER Referring Physician: MIGUEL Ortiz Interpretation Summary The left ventricular cavity is small and appears to be underfilled. Overall left ventricular systolic function is preserved. There are no obvious focal wall motion abnormalities noted but poor endocardial definition reduces the sensitivity for the detection of such. The mitral valve leaflets are mildly calcified. There is mild mitral annular calcification. There is no mitral regurgitation noted. There is a trivial pericardial effusion noted. There are no echocardiographic indications of cardiac tamponade. RV chamber size and function are both grossly normal. Pulmonary artery pressures cannot be estimated because of the lack of a measurable TR jet velocity. Procedure: A two-dimensional transthoracic echocardiogram with color flow and Doppler was performed. The study quality was technically difficult. A contrast injection of Definity was performed to improve assessment of LV function. Contrast was injected into an intravenous site in the left arm. A total of 3 cc of contrast was given. The patient was in sinus during the exam. Left Ventricle: The left ventricular cavity is small. Overall left ventricular systolic function is preserved. There are no obvious focal wall motion abnormalities noted but poor endocardial definition reduces the sensitivity for the detection of such. Spectral Doppler of the mitral valve is reversed, with an E/A wave ratio < 1.0. Right Ventricle: The right ventricle grossly appears normal in size with probable normal systolic function. Atria: The left atrium grossly appears normal in size. The right atrium grossly appears normal in size. The thickening of interatrial septum suggests lipomatous hypertrophy. There is no Doppler evidence for an atrial septal defect. Mitral Valve: The mitral valve leaflets are mildly calcified. There is mild mitral annular calcification. There is no mitral regurgitation noted. Aortic Valve: The aortic valve is not well visualized. The aortic valve is trileaflet. There is mild aortic valve sclerosis. No aortic regurgitation is present. Tricuspid Valve: The tricuspid valve is not well visualized, but is grossly normal. There is a trace or physiologic amount of tricuspid regurgitation. Pulmonary artery pressures cannot be estimated because of the lack of a measurable TR jet velocity. Pulmonic Valve: The pulmonic valve is not well visualized. Great Vessels: The aortic root is not well visualized. The pulmonary is not well visualized. The IVC has a measurement of 15 mm. Unable to evaluate for inspirational collapse. Pericardium/ Pleura There is a trivial pericardial effusion noted. There are no echocardiographic indications of cardiac tamponade. There is no pleural effusion. MMode/2D Measurements & Calculations LA dimension: 3.6 cm RA long axis: 4.0 cmAoV Openin.3 cm Ao Arch Diam (Prox Trans): 2.4 cm LA A2 area: 16.2 cm RA area: 11.9 cm LA A4 area: 14.0 cm RA vol: 29.9 ml LA length (vol): 4.6 cm RA : 19.6 ml/m2 LA vol: 41.9 ml LA vol index: 27.5 ml/m IVC diam: 1.5 cm Doppler Measurements & Calculations Ao V2 max MV E max jerzy MV E/A: 0.71 MV dec time: 0.39 sec : 148.8 cm/sec : 96.7 cm/sec Med Peak E' Jerzy Ao max P.9 mmHgMV A max jerzy Ao mean PG : 136.1 cm/sec E/E' med: 16.0 MV P1/2t Lat Peak E' Jerzy LVOT Max Jerzy : 114.1 msec : 137.0 cm/sec E/E' lat: 19.5 sev ratio: 0.99 E/e' average Pulm A Revs Dur MV A dur : 0.15 sec MV P1/2t max jerzy Ao V2 mean LV V1 max PG Pulm A Revs Dur - MV : 101.3 cm/sec A Dur: -0.01 msec Ao V2 VTI: 27.0 cm LV V1 VTI MVA(P1/2t): 1.9 cm2 : 26.7 cm Reading Physician:KENNEDY
--- NOTE | 2016-09-13 13:37 | NUR ---
Social Work: Initial Assessment D: Per EMR review, pt is a 75 year old female admitted for STEMI. Pt is Medicare with [facility] supplement; pt has no LTC insurance or VA benefits. PCP is Jenni Ortiz PA-C. NOK Is Jean-Pierre/Madyson Turpin, son/dtr, [phone]. Advanced directives not completed- pt not appropriate to receive information at this time. No readmit score entered. Pt discussed in am rounds with MD. Pt is currently vented, sedated and on cooling protocol. HEALTHCARE NETWORK PRICING CONSULTANT met with pt's family at bedside, including daughter Madyson. Pt lives in [place], alone. She is I at baseline, driving and was using no DME prior to admission. To the best of family's knowledge, Pt has never had HH or long term. Family is tearful over pt's current condition. Emotional support provided to family. A: Pt is currently in CCU status; vented and sedated. P: Evolving; HEALTHCARE NETWORK PRICING CONSULTANT to follow pt's clinical course and assist with safe discharge planning per orders from MD. HEALTHCARE NETWORK PRICING CONSULTANT to continue to follow. NATACHA Marcano Addendum: 09/13/16 at 1342 by HAWA CATALAN Amended: Links added.
--- NOTE | 2016-09-13 14:06 | CONS ---
[address] [address] CONSULTATION REPORT PATIENT: SANDRA BONNER : 1940 MR#: [id number] ADMIT: 09/12/2016 JOB ID: [id number] PULMONARY CRITICAL CARE CONSULTATION: DATE OF SERVICE: 09/13/2016 REASON FOR CONSULTATION: This patient is a 75-year-old woman seen in consultation at the request of Dr. Weems for PEA cardiac arrest and respiratory failure. HISTORY OF PRESENT ILLNESS: The patient is intubated by the time we met her, so all of the history is per review of medical records. The patient has a history of hypertension, diabetes and ongoing tobacco use. Family was concerned about her acting strangely on the telephone and called EMS to check on her. They arrived at 7:30 p.m. yesterday, i.e. September 12, and found her minimally responsive. They gave her one round of epinephrine and bicarbonate. They also initiated CPR and a Chaparro airway was placed with which pulses were regained. There was really no mention of rhythm based on the description and absence of shock mentioned in the emergency department note, I am assuming this was a PEA arrest. The patient had an EKG that was abnormal with some ST elevations, so she was taken to the rd lab technician by Cardiology and found have multivessel coronary artery disease with 70% to 80% narrowing in multiple vessels; none of which required intervention. The recommendation was for CABG if she stabilizes neurologically. She was moved to the ICU and placed on hypothermia protocol; however on arrival she was already hypothermic around 31-32 degrees. She reached goal core temperature 11 p.m. last night and remains on hypothermia currently. She has also been hypotensive on very high dose norepinephrine infusion at 1 mcg. She has also been in DKA with blood sugars in the 500s and serum bicarbonate in the single digits which we have had difficulty controlling. Even now on an insulin drip, her sugars are in the 400s. She is currently unresponsive on the ventilator but not paralyzed. Pupils are sluggish according to the nurse. PAST MEDICAL HISTORY, SOCIAL HISTORY, FAMILY HISTORY, REVIEW OF SYSTEMS: Could not be obtained directly from the patient. Based on review of the chart, I obtained the following information: Past Medical History: Longstanding tobacco use. Type 2 diabetes, hypertension, peripheral vascular disease. Social history: Ongoing smoker. PHYSICAL EXAMINATION: Vital signs reviewed. Temperature 33.2, pulse 66, respirations 20, BP 98/41, sats 100% on 30% FiO2. General: Intubated, sedated. HEENT: Pupils equal, about 2 mm in size. ET tube in appropriate position. Chest: Clear to auscultation bilaterally. No wheezes, crackles. Heart: Regular rate, rhythm. Abdomen nontender. Extremities: No cyanosis, clubbing, edema. Skin: No rashes. Neck: No lymphadenopathy. LABORATORY DATA: Labs reviewed. WBC initially 25 and now down to 7, hemoglobin stable at 10, platelets of 100 down from 201 on admission. Chemistry shows sodium is up to 149, potassium 2.5, chloride 113, bicarb of 9 up from 4. BUN of 52 and creatinine 2.56 with no priors for comparison. Lactate of 1.6 down from 3. CK of 2100. LFTs slightly elevated with AST 215, ALT of 65, alk phos of 311, bilirubin of 0.5. IMAGING: Chest x-ray reviewed and shows poor aeration in the right lung. ET tube is somewhat high. I am going to repeat an x-ray to reassess left basilar atelectasis. Arterial blood gas most recently shows pH of 7.07, pCO2 of 33, pO2 of 121, bicarb of 9. ASSESSMENT AND RECOMMENDATIONS: 1. Presumed pulseless electrical activity cardiac arrest on September 12. 2. Acute hypoxic respiratory failure on mechanical ventilation since September 12. 3. ST-elevation myocardial infarction with multivessel coronary artery disease based on cardiac cath, September 12. No intervention done. 4. Aspiration pneumonitis. 5. Septic/cardiogenic shock. 6. Hypernatremia. 7. Hypokalemia. 8. Thrombocytopenia. 9. Diabetic ketoacidosis. 10. Acute kidney injury, creatinine of 2.5. This 75-year-old woman with diabetes and longstanding smoking history presented in cardiac arrest that seems to have been PEA based on description with brief CPR and epinephrine with return of spontaneous circulation in the field. She had an emergent cardiac cath which showed multivessel significant coronary disease but none that required immediate intervention. The recommendation is to pursue CABG as long as the patient shows evidence of neurologic recovery and is safe to be transferred. She is currently on the ventilator with 30% FiO2 and 8 cm of PEEP. Blood gas shows severe metabolic acidosis with attempted respiratory compensation. I increased her tidal volume to help assist in this and will repeat another blood gas. With regards to DKA, we are still having difficulty controlling this and her bicarb is still very low and sugars still very high. Looking at her IV fluids, she has multiple sources for which she is getting D5 in significant quantities, so I spoke to Pharmacy and asked them to remove the D5 from many sources. Her bicarb drip is going to be put in sterile water and D5 removed. I also noted that her serum chloride is going; it is at 130 and this is likely also contributing to acidosis so I stopped her normal saline IV infusion. She is on norepinephrine alone at 1 mcg/kg, so I added vasopressin in the hope to minimize this. I am also hoping that with improvement in her acidosis we will see an improvement in her hemodynamics as well. She is making urine despite the acute kidney injury. With regard to antibiotics, she is getting ceftriaxone currently. Her x-ray shows no focal infiltrate, although she does have left basilar atelectasis. I ordered a procalcitonin. It this is negative, we can stop the antibiotics; however if this is positive, I would treat her for aspiration with the Unasyn instead of ceftriaxone. I added DVT prophylaxis with subcu heparin 5000 q.8 h. and GI prophylaxis with famotidine. She is a DO NOT RESUSCITATE per her son who is her legal [id number]. CRITICAL CARE TIME: 60 minutes. MAHI
[2016-09-13] MEDS ORDERED: KCl 40 mEq/100 mL Premix (K 3 - 3.7 & Creat < 2) IV ONE (15:35)
--- NOTE | 2016-09-13 17:05 | ABG ---
DateTimeAnalyzed 16:59:00 -_ pH ____7.177 - 7.350 7.450 pCO2 ___37.6__ -mmHg 35.0 45.0 pO2 ___87.6__ -mmHg 69.0 116 HCO3- ___13.4__ -mmol/L 22.0 26.0 ABE __-13.8__ -mmol/L -2.0 2.0 tHb ____9.6__ -g/dL O2Hb ___94.8__ -% COHb ____1.4__ -% MetHb ____1.5__ -% sO2 ___97.6__ -% FIO2 ___30.0__ -% PEEP ____8.0__ -cmH2O Vt __450.0__ -L Drawn By RC - Date/Time Notified____ 17:04:00 -_ Spontaneous_RR ___14.0__ -b/min Oxygen Device 1 VENTILATOR - Notified By RC - Notified Whom KENA MANZANO, RN -____ B 762 -mmHg tO2 ___13.0__ -Vol% Alirio test N/A -
--- NOTE | 2016-09-13 17:33 | PCM.PNMED ---
Subjective Date of Service September 13, 2016 Subjective Ms Mcgee is a 75-year-old lady and current everyday smoker with a history of hypertension, peripheral vascular disease, chronic anemia and diabetes. She presented to the emergency department via EMS following an out of hospital cardiac arrest secondary to ST elevation inferior myocardial infarction. Admitted to the CCU and cooling protocol initiated. Patient underwent emergency cardiac catheterization without intervention and found to have multivessel disease not amenable to PCI. Possible referral for CABG surgery if patient recovers and is stable enough for transfer and/or surgery. Admitted to CCU and hypothermia protocol initiated with patient reaching goal temp at 2300 on 09/12. Exam Vital Signs Vital Sign - Last Date Time Temp Pulse Resp B/P Pulse Ox O2 Delivery O2 Flow Rate FiO2 09/13/16 04:43 86 98/46 100 30 09/13/16 03:51 32.7 14 Mechanical Ventilator Intake and Output 09/12/16 09/12/16 09/13/16 Cumulative From/Thru 15:00 23:00 07:00 09/12/16 20:44 - 09/13/16 05:06 Intake Total 1751 ml 1751 ml Output Total 50 ml 50 ml Balance 1701 ml 1701 ml Intake Oral 0 ml 0 ml IV Total 1751 ml 1751 ml Output Urine Total 50 ml 50 ml Gastric Drainage Total 0 ml 0 ml # Bowel Movements 0 0 Exam General: Sedated and mechanically ventilated on hypothermia protocol. Unresponsive. HEENT: Pupils equal, round, and reactive to light. Mucous membranes moist/pink. Neck: Supple, trachea midline, no lymphadenopathy or thyromegaly. Cardiovascular: Regular rate and rhythm with no murmurs, rubs, or gallops appreciated Pulmonary: Clear to auscultation bilaterally with no crackles, wheezes, or rhonchi. Abdomen: Soft, nondistended, no masses appreciated. Extremities: Dirt and possibly dried blood underneath fingernails on the left hand. Upper/lower ext cool to the touch with no cyanosis or edema. Skin: Cool, normal texture, turgor, no rashes or ulcerations noted. Neurological/Psychiatric: Unable to asses as patient is sedated, unresponsive. IVs and Medications Medications Reviewed: Medications were reviewed in detail Lab and Diagnostics Laboratory Tests Test 09/12/16 20:45 09/12/16 20:50 09/12/16 20:55 09/12/16 20:56 White Blood Count 25.3th/mm3 (3.8-10.1) Red Blood Count 4.29mil/mm3 (3.90-5.20) Hemoglobin 12.4g/dL (12.0-15.6) Hematocrit 36.8% (35.0-46.0) Mean Corpuscular Volume 85.8fL (81-100) Mean Corpuscular Hemoglobin 28.9pg (27.0-35.0) Mean Corpuscular Hemoglobin Concent 33.7% (32.0-37.0) Red Cell Distribution Width 13.8% (12.3-15.4) Platelet Count 201bil/L (150-400) Neutrophils (%) (Auto) 61% (40-74) Lymphocytes (%) (Auto) 28% (14-46) Monocytes (%) (Auto) 5% (4-12) Eosinophils (%) (Auto) 1% (0-5) Basophils (%) (Auto) 1% (0-3) Band Neutrophils % 4% (1-5) Prothrombin Time 11.2sec (8.1-12.5) Prothromb Time International Ratio 1.05ratio Activated Partial Thromboplast Time 34.2sec (22.8-33.0) Sodium Level 141mEq/L (134-144) Potassium Level 4.6mEq/L (3.5-5.2) Chloride Level 100mEq/L (97-108) Carbon Dioxide Level 3mmol/L (18-29) Blood Urea Nitrogen 59mg/dL (8-27) Creatinine 3.01mg/dL (0.57-1.00) Estimat Glomerular Filtration Rate 22mL/min (>59) Glucose Level 741mg/dL (60-99) Lactic Acid Level 3.0mmol/L (0.4-2.0) Calcium Level 9.1mg/dL (8.5-10.1) Magnesium Level 2.9mg/dL (1.6-2.6) Total Bilirubin 0.5mg/dL (0.0-1.2) Aspartate Amino Transf (AST/SGOT) 222U/L (0-50) Alanine Aminotransferase (ALT/SGPT) 99U/L (0-32) Alkaline Phosphatase 249U/L (25-165) Troponin T 6.09ug/L (0.0-0.011) Total Protein 5.3g/dL (6.4-8.4) Albumin 2.8g/dL (3.4-5.0) Thyroid Stimulating Hormone (TSH) 3.210uIU/mL (0.450-4.500) Urine Color Yellow (YELLOW) Urine Appearance Turbid (CLEAR,HAZY) Urine pH 6.0 (5.0-8.0) Urine Specific [place] 1.025 (1.003-1.035) Urine Protein 100mg/dL (NEG,TRACE) Urine Glucose (UA) 1000mg/dL (NEGATIVE) Urine Ketones 80mg/dL (NEGATIVE) Urine Occult Blood Large (NEGATIVE) Urine Nitrite Negative (NEGATIVE) Urine Bilirubin Negative (NEGATIVE) Urine Urobilinogen Normalmg/dL (NORMAL) Urine Leukocyte Esterase Trace (NEGATIVE) Urine RBC 3-10/hpf (0-2) Urine WBC 11-50/hpf (0-5) Urine Epithelial Cells Few/hpf (NONE-MOD) Urine Crystals None seen (NONE SEEN) Urine Bacteria Many/hpf (NONE-FEW) Urine Hyaline Casts None/lpf (NONE) Urine Granular Casts None seen (NONE SEEN) Urine Waxy Casts None seen (NONE SEEN) Urine Red Blood Cell Casts None seen (NONE SEEN) Urine White Blood Cell Casts None seen (NONE SEEN) Urine Mucus None seen (None Seen) Urine Trichomonas None seen (NONE SEEN) Urine Yeast None (NONE SEEN) Urinalysis Comment None Urine Culture Reflexed Indicated Hold Spencer Top Tube Received (Received) Received (Received) Osmolality 368 (275-300) Prealbumin 10mg/dL (20-40) Test 09/13/16 02:41 09/13/16 08:37 09/13/16 13:45 White Blood Count 11.6th/mm3 (3.8-10.1) 7.1th/mm3 (3.8-10.1) Red Blood Count 3.69mil/mm3 (3.90-5.20) 3.46mil/mm3 (3.90-5.20) Hemoglobin 10.6g/dL (12.0-15.6) 10.0g/dL (12.0-15.6) Hematocrit 30.5% (35.0-46.0) 28.1% (35.0-46.0) Mean Corpuscular Volume 82.7fL (81-100) 81.2fL (81-100) Mean Corpuscular Hemoglobin 28.7pg (27.0-35.0) 28.9pg (27.0-35.0) Mean Corpuscular Hemoglobin Concent 34.8% (32.0-37.0) 35.6% (32.0-37.0) Red Cell Distribution Width 13.6% (12.3-15.4) 13.5% (12.3-15.4) Platelet Count 141bil/L (150-400) 100bil/L (150-400) Prothrombin Time 13.5sec (8.1-12.5) 12.7sec (8.1-12.5) Prothromb Time International Ratio 1.26ratio 1.18ratio Sodium Level 149mEq/L (134-144) 149mEq/L (134-144) 148mEq/L (134-144) Potassium Level 2.5mEq/L (3.5-5.2) 2.5mEq/L (3.5-5.2) 3.5mEq/L (3.5-5.2) Chloride Level 110mEq/L (97-108) 113mEq/L (97-108) 115mEq/L (97-108) Carbon Dioxide Level 4mmol/L (18-29) 9mmol/L (18-29) 12mmol/L (18-29) Blood Urea Nitrogen 55mg/dL (8-27) 52mg/dL (8-27) 51mg/dL (8-27) Creatinine 2.56mg/dL (0.57-1.00) 2.56mg/dL (0.57-1.00) 2.54mg/dL (0.57-1.00) Estimat Glomerular Filtration Rate 26mL/min (>59) 26mL/min (>59) 26mL/min (>59) Glucose Level 559mg/dL (60-99) 505mg/dL (60-99) 495mg/dL (60-99) Lactic Acid Level 1.3mmol/L (0.4-2.0) 1.6mmol/L (0.4-2.0) Calcium Level 8.0mg/dL (8.5-10.1) 7.4mg/dL (8.5-10.1) 7.4mg/dL (8.5-10.1) Magnesium Level 2.4mg/dL (1.6-2.6) 1.8mg/dL (1.6-2.6) Total Bilirubin 0.6mg/dL (0.0-1.2) 0.5mg/dL (0.0-1.2) Aspartate Amino Transf (AST/SGOT) 223U/L (0-50) 215U/L (0-50) Alanine Aminotransferase (ALT/SGPT) 77U/L (0-32) 65U/L (0-32) Alkaline Phosphatase 291U/L (25-165) 311U/L (25-165) Total Creatine Kinase 1961U/L (21-215) 2105U/L (21-215) Creatine Kinase MB 147.0ng/mL (0.0-5.3) 157.0ng/mL (0.0-5.3) Creatine Kinase MB % 7.5% (0.0-5.0) 7.5% (0.0-5.0) Troponin T 9.13ug/L (0.0-0.011) 10.12ug/L (0.0-0.011) Total Protein 3.6g/dL (6.4-8.4) 3.2g/dL (6.4-8.4) Albumin 2.1g/dL (3.4-5.0) 1.6g/dL (3.4-5.0) Procalcitonin 2.58ng/mL (0.00-0.08) Hold Purple Top Tube Received (Received) Hold Blue Top Tube Received (Received) Hold Bass Top Tube Received (Received) Result Diagram: 09/13/16 0241 09/13/16 0241 Microbiology 09/12/16 Blood Culture- pending 09/12/16 MRSA (PCR) - negative 09/12/16 Urine Culture - gram negative rods X-Rays, CTs and MRIs (09/12/16) X-RAY CHEST ONE VIEW, PORTABLE IMPRESSION: ET tube 6.6 cm superior to the akbar. Dictated and approved by: Anya Hunt MD, PhD on 09/12/2016 at 21:05 (09/12/16) X-RAY CHEST ONE VIEW, PORTABLE IMPRESSION: Minimal bibasilar streaky opacities. This could be client service representative of atelectasis versus developing airspace disease such as pneumonia. Dictated and approved by: Jeanne Elizabeth M.D. on 09/13/2016 at 12:17 (09/12/16) CT BRAIN WITHOUT CONTRAST IMPRESSION: 1. Indeterminate left caudate hypodensity. Appearance is suggestive of late subacute/early chronic infarction. As clinically indicated, MRI may be obtained. No priors are available for comparison. 2. Mild atrophy and chronic microvascular ischemic changes. Dictated and approved by: Jeanne Elizabeth M.D. on 09/13/2016 at 8:29 . Assessment & Plan Ms Mcgee is a 75-year-old lady and current everyday smoker with a history of hypertension, peripheral vascular disease, chronic anemia and diabetes. She presented to the emergency department via EMS following an out of hospital cardiac arrest secondary to ST elevation inferior myocardial infarction. Admitted to the CCU and cooling protocol initiated. Out of hospital cardiac arrest, likely PEA. Present on admission. - Likely secondary to STEMI and DKA. Patient found unresponsive by EMS on 09/12 at approximately 1930. CPR initiated and patient intubated in the field. Received one round of epinephrine and bicarbonate with return of spontaneous rhythm. - On arrival, ST-elevation was noted on EKG and patient underwent emergent cardiac catheterization which revealed multivessel disease. No intervention was done as patient needs bypass surgery and is currently not stable for transfer or surgery. - Admitted to CCU on 09/12 and cooling protocol initiation with goal temp reached at 2300. - Cardiology is following, appreciate recommendations and expertise. Acute hypoxic respiratory failure. Present on admission. Active. - Secondary to cardiac arrest and patient intubated in the field. No evidence of pulmonary infection or edema. - ABG shows severe respiratory acidosis. pH 7.07, pCO2 33.7, pO2 121, HCO3 9.4. - Continue Ventilator support and management, per Pulm/CCU team. Will follow recommendations. - Sedation: fentanyl, propofol. Titrate as able - Monitor ABG Shock, acute. Present on admission. Active. - Likely cardiogenic secondary to STEMI with cardiac arrest. Possibly with an infectious component, urine culture is growing gram negative rods. Blood cultures are pending. - Hypotensive and requiring pressor support. Norepinephrine at 1mcg/kg. Vasopressin added 09/13. - Fluid resuscitation complicated by DKA with hyperglycemia and extremely low bicarb. - Lactic acid normalized. - Continue bicarb and insulin drip. - Pulm/CCU is following, appreciate recommendations for IV fluids. - Stop normal saline due to hypernatremia, free water deficit. ST-Elevation myocardial infarction, acute. Present on admission. Active. - Patient with significant cardiac risk factors: uncontrolled diabetes with DKA , hypertension, hyperlipidemia and tobacco use. - Multivessel coronary artery disease noted on cardiac cath with possible referral for bypass surgery if patient recovers. Reevaluate when rewarmed. - Continue aspirin, clopidogrel, statin. Per Cardiology, appreciate expertise. - Continue management per Cardiology, aspirin, clopidogrel, statin and amiodarone for 24hrs. Acute encephalopathy. Present on admission. Active. - Likely due to anoxic brain injury. Etiologies considering: metabolic from DKA and subsequent cardiac arrest. Uncertain if neurologic deficit persists. Per family, patient has not quite been herself lately. - Continue cooling protocol and monitor neurologically - Treat underlying cause. - Consider EEG and Neurology consult after cooling protocol. Diabetic Ketoacidosis, acute. Present on admission. Active - Glucose 741 on admission with anion gap 35, positive urine ketones and ABG as above. - Continue DKA insulin protocol until gap closes, then transition to subq insulin. - BMP q4h, replete electrolytes per protocol - Pulm/CCU is following, appreciate recommendations for IV fluids. Hypernatremia, acute. Present on admission. Active - Likely secondary to metabolic acidosis, fluid resuscitated with normal saline. - Change normal saline to 1/2 NS, limit amount of D5 due to hyperglycemia. - Avoid rapid correction, < 10mEq/L/day. - Pulm/CCU is following, appreciate recommendations for IV fluids. - BMP q4 Hypokalemia, acute. Present on admission. Active. - Likely due to intracellular shift secondary to insulin/DKA. - Potassium 2.5, received 40mEq IV x2. - BMP q4h, replete as needed. Acute kidney injury with metabolic acidosis. Present on admission. Active. - Likely prerenal azotemia with possible acute tubular necrosis. Possible Chronic kidney disease due to diabetic nephropathy and hypertensive nephrosclerosis. - Recommendations per Pulm/CCU for IV fluids and bicarb drip appreciated. - Follow BMP - Consider Nephrology consult if renal function continues to decline. Urinary tract infection, unknown chronicity. Present on admission. Active - Gram negative rods on urine culture. Unknown if patient has symptoms due to condition. - Blood cultures- pending. - Continue ceftriaxone 1 g IV daily. Diabetes mellitus, type 2. Present on admission. Poorly controlled. - HbA1c pending. - Hold home insulin glargine/aspart and linagliptin. - Management as above for DKA. Elevated liver enzymes, acute. Present on admission. Active. - Likely due to shock liver. - Management as above. - Follow CMP - Consider Hepatitis panel Nicotine addiction, chronic. Present on admission. Active - Defer smoking cessation counseling until patient awake. - Acetaminophen as needed for mild pain/fever/headache - Bowel regimen as needed - Antiemetic as needed Disposition: Guarded as patient remains intubated and sedated in the CCU. Pain Evaluation: Adequate Pain Control VTE Mechanical Devices: Intermittant Pneumatic CD Resuscitation Status: CPR: Attempt Resuscitation Attending Statement The patient was seen and examined together with Dr. Wade on 09/13/2016 and I agree with the history, exam and plan as outlined in the note above. . Zee Wade DO September 13, 2016 08:33 Idris Weems MD September 15, 2016 14:49
[2016-09-13] MEDS ORDERED: Lactated Ringer's 1,000 ML IV SCH (17:55)
[2016-09-13 18:25] LABS: Magnesium 1.5 mg/dL (1.6-2.6)
[2016-09-13] MEDS ORDERED: Magnesium Sulf 2 Gm/50 mL D5W IV ONE (19:20)
[2016-09-13] MEDS ORDERED: KCl 20 mEq/100 mL(CENTRAL) 20 MEQ in IV Premix 1 EACH IV ONE (19:20)
--- NOTE | 2016-09-13 19:22 | NUR ---
Therapeutic Hypothermia in progress; 24hr point is @ 2310. S/p found down unknown time/PEA/initial BGlucose>700. Goal temp maintained w/ artic Sun cooling system. No sign of shivering, or seizure symptoms. Neuro: LUKAS, sluggish, 3mm. occasional facial grimace in response to oral care. Sedation: Fentanyl @ 100mcg/hr, Propofol @ 10mcg/kg/min. RASS -3 to -4. Resp: Vent changes/serial ABGs. Current settings 30Fio2/Peep=8/PRVC 20/Tv 450. Scant ETT secretions. Oral mucosa dry; freq oral care. CV: Norepi @ max dose 1mcg/min, plus Vasopressin @ 0.03. MAP 50s. MDs aware. Fluid boluses intermittently, per CVP protocol. Sinus luz elena 50s, MF PVCs. CVP 8-10; LR [id number] total in boluses this afternoon. Bicarb gtt @ 70/hr. Lab: hypokalemic with ongoing K+ relacement BG: persistently high despite DKA Ins Gtt; now <400. IVF chgd per Dr. Quinones; to reduce dextrose load. Large extended family keeping mendes @ bedside; attentive & supportive. Updated frequently by MDs, RN, RT.
[2016-09-13] MEDS: Lactated Ringer's 1,000 ML IV PRN ×5 (20:00→23:53)
[2016-09-13] MEDS ORDERED: Lactated Ringer's 500 ML IV PRN (20:10)
[2016-09-13] MEDS: EPINEPHrine 10,000 mCg/250 mL NS IV SCH ×2 (20:41)
[2016-09-13] MEDS: cefTRIAXone Inj 1,000 MG in Dextrose 5% Minibag Plus 50 ML IV SCH (20:42)
[2016-09-13 21:00] LABS: Mean Corpuscular Hemoglobin 28.8 pg (27.0-35.0); Mean Corpuscular Volume 77.9 fL (81-100)
[2016-09-13 21:12] LABS: INR 1.3 ratio
[2016-09-13] MEDS: Famotidine Inj 20 MG in IV Premix 1 EACH IV SCH (21:21)
[2016-09-13 21:31] LABS: Magnesium 2.3 mg/dL (1.6-2.6)
[2016-09-13 21:40] LABS: TROPONIN T 8.36 ug/L (0.0-0.011)
[2016-09-13] MEDS ORDERED: Vasopressin 20 Units/100 mL NS IV PRN ×2 (22:00)
--- NOTE | 2016-09-13 23:53 | ABG ---
DateTimeAnalyzed 23:49:00 -_ pH ____7.274 - 7.350 7.450 pCO2 ___29.7__ -mmHg 35.0 45.0 pO2 ___53.5__ -mmHg 69.0 116 HCO3- ___13.3__ -mmol/L 22.0 26.0 ABE __-12.1__ -mmol/L -2.0 2.0 tHb ____9.5__ -g/dL O2Hb ___90.2__ -% COHb ____1.6__ -% MetHb ____1.7__ -% sO2 ___93.3__ -% FIO2 ___30.0__ -% PEEP ____8.0__ -cmH2O Set_RR ___20.0__ -b/min Vt __450.0__ -L Drawn By MK - Spontaneous_RR ___20.0__ -b/min Oxygen Device 1 VENTILATOR - Notified Whom Noelle Huerta - B 763 -mmHg tO2 ___12.0__ -Vol% OrderingPhysicianInitials mf - Alirio test _Positive -
[2016-09-14] VITALS (8 sets, daily range): BP systolic 87–144; BP diastolic 37–63; PULSE 65–99; RESP 20; O2SAT 94–100
[2016-09-14] MEDS: Norepinephrine 8,000 mCg/250 mL NS Premix IV PRN ×5 (00:56→13:47)
[2016-09-14] MEDS: Lactated Ringer's 1,000 ML IV PRN ×5 (00:57→13:46)
[2016-09-14] MEDS ORDERED: Sodium Bicarb 8.4% Inj 150 MEQ in Water Sterile for Injection 1,000 ML IV SCH (03:13)
[2016-09-14 03:46] LABS: Magnesium 1.7 mg/dL (1.6-2.6)
[2016-09-14] MEDS: Amiodarone 360 mg/200 mL D5W IV SCH (04:02)
[2016-09-14 04:25] LABS: BASOPHILS % (AUTO) 0 % (0-3); EOSINOPHILS % (AUTO) 0 % (0-5); MONOCYTES % (AUTO) 3 % (4-12); Mean Corpuscular Hemoglobin 29.6 pg (27.0-35.0); Mean Corpuscular Volume 77.9 fL (81-100); NEUTROPHILS % (AUTO) 67 % (40-74); Platelet Count 55 bil/L (150-400)
--- NOTE | 2016-09-14 04:44 | ABG ---
DateTimeAnalyzed 04:39:00 -_ pH ____7.293 - 7.350 7.450 pCO2 ___30.3__ -mmHg 35.0 45.0 pO2 ___55.4__ -mmHg 69.0 116 HCO3- ___14.2__ -mmol/L 22.0 26.0 ABE __-10.9__ -mmol/L -2.0 2.0 tHb ____9.3__ -g/dL O2Hb ___90.7__ -% COHb ____1.5__ -% MetHb ____1.4__ -% sO2 ___93.4__ -% FIO2 ___50.0__ -% PEEP ____8.0__ -cmH2O Set_RR ___20.0__ -b/min Vt __450.0__ -L Drawn By MK - Spontaneous_RR ___20.0__ -b/min Oxygen Device 1 VENTILATOR - Notified Whom Noelle Huerta - B 763 -mmHg tO2 ___11.9__ -Vol% OrderingPhysicianInitials mf -
--- NOTE | 2016-09-14 06:34 | NUR ---
Hypothermia protocol (continued cooling phase) P: on max levo and vasopressin gtt, lowest sbp in the 70s, map 40s cvp 6-7, bicarb gtt @ 70 ml/hr, HR 60s junctional with frequent pvcs, k 3.5 and mag level 1.5 @ 1800. Scanty uo from garrido. I: notified Dr. Bird(cardiology)ordered to start epinephrine gtt and LR boluses to keep cvp>12, given LR boluses prn, hung 2gm mag sulfate, kcl 20 meq IV, notified hospitalist of labs (lactic 4.4, platetet 57, anion gap 17 and cardiac enzymes),hold heparin for now. E: map improved to 50-60's, converted to nsr around 2200. P: midnight abg with p02 53, rewarming phase started @ 2310. I: fio2 increased to 0.50 per RT. P: Re:tube feed standing order, p02 55 on AM abg. I: clarified tubefeed order with Dr. Morin, notified MD of am labs as well, increased fio2 to 0.60 (per RT). E: BP remain labile, given 4L LR boluses through the night, in and out of junctional and SR 60-70's, garrido drained 20cc uo, BG remain in the 300's on insulin gtt, recent anion gap 16, k 3.5, mag level 1.7.
--- NOTE | 2016-09-14 07:13 | PCM.PNMED ---
Subjective Date of Service September 14, 2016 Subjective Hosp day 2. Labile BP overnight req LR bolus and addition of Epi ggt. Currently in rewarming phase. Continues to have minimal UOP. ROS not obtainable. Exam Vital Signs Vital Sign - Last Date Time Temp Pulse Resp B/P Pulse Ox O2 Delivery O2 Flow Rate FiO2 09/14/16 04:50 60 09/14/16 04:48 65 144/48 96 09/14/16 03:48 33.6 20 Mechanical Ventilator Intake and Output 09/13/16 09/13/16 09/14/16 Cumulative From/Thru 15:00 23:00 07:00 09/12/16 20:44 - 09/14/16 05:43 Intake Total 5754 ml 7338 ml 24568 ml Output Total 80 ml 20 ml 150 ml Balance 5674 ml 7318 ml 60936 ml Intake Oral 30 ml 30 ml IV Total 5724 ml 7338 ml 28692 ml Output Urine Total 60 ml 20 ml 130 ml Gastric Drainage Total 20 ml 0 ml 20 ml # Bowel Movements 0 0 0 Exam General: Sedated and mechanically ventilated on hypothermia protocol (rewarming) . Unresponsive. HEENT: Pupils equal, round, and sluggishly reactive to light. sclera are moderately edematous without conjunctival injection. Mucous membranes moist/ pink. Neck: Supple, trachea midline, no lymphadenopathy or thyromegaly. Cardiovascular: Regular rate and rhythm with no murmurs, rubs, or gallops appreciated Pulmonary: Course rhonchi bilaterally and diffusely (report of shahid/white secretions from ETT). Abdomen: Soft, nondistended, no masses appreciated. No BT appreciated. Extremities: Dirt and possibly dried blood underneath fingernails on the left hand. Upper/lower ext cool to the touch with no cyanosis or edema. Please not significant pallor and coolness of the hands and feet to the level of the mid forearm and lower legs bilaterally. Nonblanchable purple macular patch on plantar surface of R great toe. Skin: no rashes or ulcerations noted. Neurological/Psychiatric: Unresponsive. Unable to asses as patient is sedated, unresponsive. Lab and Diagnostics Result Diagram: 09/14/16 0255 09/14/16 0255 Microbiology 09/12/16 Blood Culture- pending 09/12/16 MRSA (PCR) - negative 09/12/16 Urine Culture - gram negative rods X-Rays, CTs and MRIs (09/12/16) X-RAY CHEST ONE VIEW, PORTABLE IMPRESSION: ET tube 6.6 cm superior to the akbar. Dictated and approved by: Anya Hunt MD, PhD on 09/12/2016 at 21:05 (09/12/16) X-RAY CHEST ONE VIEW, PORTABLE IMPRESSION: Minimal bibasilar streaky opacities. This could be floor representative of atelectasis versus developing airspace disease such as pneumonia. Dictated and approved by: Jeanne Elizabeth M.D. on 09/13/2016 at 12:17 (09/12/16) CT BRAIN WITHOUT CONTRAST IMPRESSION: 1. Indeterminate left caudate hypodensity. Appearance is suggestive of late subacute/early chronic infarction. As clinically indicated, MRI may be obtained. No priors are available for comparison. 2. Mild atrophy and chronic microvascular ischemic changes. Dictated and approved by: Jeanne Elizabeth M.D. on 09/13/2016 at 8:29 . Assessment & Plan Ms Mcgee is a 75-year-old lady and current everyday smoker with a history of hypertension, peripheral vascular disease, chronic anemia and diabetes. She presented to the emergency department via EMS following an out of hospital cardiac arrest secondary to ST elevation inferior myocardial infarction. Admitted to the CCU and cooling protocol initiated. Hospital day 2. Patient's clinical decline has continued today. She has significant respiratory , renal, and some degree of hepatic failure requiring maximal pressor support which is manifesting significant secondary effect on her urine output and peripheral perfusion (noted above in exam). Given her lack of significant response to aggressive therapeutic intervention, family has been notified of patient's very tenuous status at this point. There is some concern/ anticipation that she will pass shortly. Management as below. Out of hospital cardiac arrest, likely PEA. Present on admission. - Likely secondary to STEMI and DKA. Patient found unresponsive by EMS on 09/12 at approximately 1930. CPR initiated and patient intubated in the field. Received one round of epinephrine and bicarbonate with return of spontaneous rhythm. - On arrival, ST-elevation was noted on EKG and patient underwent emergent cardiac catheterization which revealed multivessel disease. No intervention was done as patient needs bypass surgery and is currently not stable for transfer or surgery. - Admitted to CCU on 09/12 and cooling protocol initiation with goal temp reached at 2300. * Currently rewarming, and set to complete today at 1700. - Cardiology is following, appreciate recommendations and expertise. -Stopped amiodarone today per cardiology recommendation, and as patient is rewarming well without arrhythmia. Acute hypoxic respiratory failure. Present on admission. Active. - Secondary to cardiac arrest and patient intubated in the field. No evidence of pulmonary infection or edema. - ABG shows severe respiratory acidosis. pH 7.07, pCO2 33.7, pO2 121, HCO3 9.4. - Continue Ventilator support and management, per Pulm/CCU team. Will follow recommendations. - Sedation: fentanyl, propofol. Titrate as able - Monitor ABG -Oxygenation continues to be an issue on this patient was quite sick. ARDS is certainly a contributing factor in her clinical decline. Shock, acute. Present on admission. Active. - Likely cardiogenic secondary to STEMI with cardiac arrest. Possibly with an infectious component, urine culture is growing gram negative rods. Blood cultures are pending. - Hypotensive and requiring pressor support. Norepinephrine at 1mcg/kg. Vasopressin added 09/13. Epinephrine added 09/14. Patient is effectively maxed out on pressors, and continues to have soft pressures. - Fluid resuscitation complicated by DKA with hyperglycemia and extremely low bicarb. - Lactic acid normalized initially, but worsened today requiring increasing IVF. - Continue bicarb and insulin drip. - Pulm/CCU is following, appreciate recommendations. - Stopped normal saline due to hypernatremia, free water deficit. Anion gap metabolic acidosis. Present on admission -Likely a combination of the DKA and lactic acidosis in the setting of shock -Management as above Thrombocytopenia, acute. Present on admission -Most likely secondary to her significant and systemic shock -Thrombocytopenia within 24h (consideration for holding DVT ppt Heparin, but will likely continue given hypercoagulability during cooling/rewarming). -Continue to monitor lab ST-Elevation myocardial infarction, acute. Present on admission. Active. - Patient with significant cardiac risk factors: uncontrolled diabetes with DKA , hypertension, hyperlipidemia and tobacco use. - Multivessel coronary artery disease noted on cardiac cath with possible referral for bypass surgery if patient recovers. Reevaluate when rewarmed. - Continue aspirin, clopidogrel, statin. Per Cardiology, appreciate expertise. - Continue management per Cardiology, aspirin, clopidogrel, statin and amiodarone for 24hrs. Acute encephalopathy. Present on admission. Active. - Likely due to anoxic brain injury. Etiologies considering: metabolic from DKA and subsequent cardiac arrest. Uncertain if neurologic deficit persists. Per family, patient has not quite been herself lately. - Continue cooling protocol and monitor neurologically - Treat underlying cause. - Consider EEG and Neurology consult a day or 2 after rewarming complete. Diabetic Ketoacidosis, acute. Present on admission. Active - Glucose 741 on admission with anion gap 35, positive urine ketones and ABG as above. - Continue DKA insulin protocol until gap closes, then transition to subq insulin. - BMP q4h, replete electrolytes per protocol - Pulm/CCU is following, appreciate recommendations for IV fluids. Hypernatremia, acute. Present on admission. Active and improved today - Likely secondary to metabolic acidosis, fluid resuscitated with normal saline. - Change normal saline to 1/2 NS, limit amount of D5 due to hyperglycemia. - Avoid rapid correction, < 10mEq/L/day. - Pulm/CCU is following, appreciate recommendations for IV fluids. - BMP q4 Hypokalemia, acute. Present on admission. Active and improved today - Likely due to intracellular shift secondary to insulin/DKA. - Potassium 2.5, received 40mEq IV x2. - BMP q4h, replete as needed. Acute kidney injury with metabolic acidosis. Present on admission. Active. - Likely prerenal azotemia with possible acute tubular necrosis. Possible Chronic kidney disease due to diabetic nephropathy and hypertensive nephrosclerosis. - Recommendations per Pulm/CCU for IV fluids and bicarb drip appreciated. - Follow BMP - Consider Nephrology consult if renal function continues to decline. -Minimal urine output in the setting of significant pressors Urinary tract infection, unknown chronicity. Present on admission. Active - Gram negative rods on urine culture. Unknown if patient has symptoms due to condition. - Blood cultures- pending. - Continue Continue CTX for GNR bacteruria (but consider broadening given pulm exam - ? switch to zosyn). Diabetes mellitus, type 2. Present on admission. Poorly controlled. - HbA1c pending. - Hold home insulin glargine/aspart and linagliptin. - Management as above for DKA. Elevated liver enzymes, acute. Present on admission. Active. - Likely due to shock liver. - Management as above. - Follow CMP - Consider Hepatitis panel Nicotine addiction, chronic. Present on admission. Active - Defer smoking cessation counseling until patient awake. - Acetaminophen as needed for mild pain/fever/headache - Bowel regimen as needed - Antiemetic as needed Patient is admitted under inpatient status with expected length of stay greater than 2 midnights due to severity of presenting symptoms, risk of adverse event, and complexity of treatment plan. Disposition: Guarded as patient remains intubated and sedated in the CCU. VTE Mechanical Devices: Intermittant Pneumatic CD Resuscitation Status: CPR: Attempt Resuscitation Attending Statement The patient was seen and examined together with Dr. Sharma on 09/14/2016 and I agree with the history, exam and plan as outlined in the note above. . Del Bajwa DO September 14, 2016 07:13 Idris Weems MD September 15, 2016 14:52
[2016-09-14 08:40] LABS: Phosphorus 2.6 mg/dL (2.5-4.9)
[2016-09-14] MEDS: Famotidine Inj 20 MG in IV Premix 1 EACH IV SCH (09:08)
[2016-09-14] MEDS: Cisatracurium 200,000 mCg/100 mL NS IV SCH ×2 (09:09)
[2016-09-14] MEDS: Vasopressin Inj 20 UNIT in 0.9% Sodium Chloride 100 ML IV SCH (09:09)
[2016-09-14] MEDS: Insulin Human REGular 100 Units/100 mL NS IV SCH ×2 (09:10)
[2016-09-14] MEDS: EPINEPHrine 10,000 mCg/250 mL NS IV SCH ×2 (09:10)
--- NOTE | 2016-09-14 09:23 | DRSVH ---
PROCEDURE: X-RAY CHEST ONE VIEW, PORTABLE ([id number]) INDICATIONS: change in pulm exam TECHNIQUE: One view of the chest was acquired. COMPARISON: [facility], CR, XR CHEST 1VW (PORTABLE), 09/13/2016, 11:40. FINDINGS: Surgical changes and devices: ET tube has been advanced and projects 1.8 cm. The chronic and be pulle d back approximately 2-3 cm. NG tube and central venous catheter are stable in position. Lungs and pleura: No pleural effusions or pneumothorax. Increasing opacification noted in the lung b ases bilaterally compatible with atelectasis versus developing pneumonia. Mediastinum: Mediastinal contours appear normal. Heart size is normal. Bones and chest wall: No suspicious bony lesions. Overlying soft tissues appear unremarkable. IMPRESSION: 1. ET tube 1.8 cm superior to the akbar. 2. Increasing bibasilar opacities left greater than right suspicious for atelectasis versus developin g pneumonia. Dictated by: Anya Hunt MD, PhD on 09/14/2016 at 9:20 Approved by: Anya Hunt MD, PhD on 09/14/2016 at 9:21
[2016-09-14 09:40] LABS: Magnesium 1.6 mg/dL (1.6-2.6)
--- NOTE | 2016-09-14 09:52 | ABG ---
DateTimeAnalyzed 09:47:00 -_ pH ____7.248 - pCO2 ___38.2__ -mmHg pO2 ___23.9__ -mmHg HCO3- ___16.1__ -mmol/L ABE __-10.0__ -mmol/L tHb ____9.1__ -g/dL O2Hb ___53.6__ -% COHb ____1.2__ -% MetHb ____1.5__ -% sO2 ___55.1__ -% FIO2 ___60.0__ -% PEEP ____8.0__ -cmH2O Vt __450.0__ -L Drawn By NSG - Date/Time Notified____ 09:52:00 -_ Spontaneous_RR ___20.0__ -b/min Oxygen Device 1 VENTILATOR - Notified Whom ___PARIMI - B 764 -mmHg tO2 ____6.9__ -Vol% Alirio test N/A -
[2016-09-14] MEDS ORDERED: DOBUTamine 500 mg/250 mL D5W Premix IV ONE (09:57)
[2016-09-14] MEDS ORDERED: DOBUTamine 500 mg/250 D5W 500,000 MCG in IV Premix 1 EACH IV SCH (10:00)
[2016-09-14] MEDS ORDERED: Vancomycin Serum Trough XX ONE (11:00)
[2016-09-14 11:10] LABS: MONOCYTES % (AUTO) 7.3 % (4-12); Mean Corpuscular Hemoglobin 29.3 pg (27.0-35.0); Mean Corpuscular Volume 78.3 fL (81-100); NEUTROPHILS % (AUTO) 81.8 % (40-74); Platelet Count 66 bil/L (150-400)
[2016-09-14 11:11] LABS: BASOPHILS % (AUTO) 0 % (0-3); EOSINOPHILS % (AUTO) 0.9 % (0-5)
--- NOTE | 2016-09-14 13:49 | PROG NOTE ---
[address] [address] PROGRESS NOTE PATIENT: SANDRA BONNER : 1940 MR#: [id number] ADMIT: 09/12/2016 JOB ID: [id number] DATE: 09/14/2016 PULMONARY CRITICAL CARE PROGRESS NOTE: The patient is a 75-year-old woman with diabetes, admitted following PEA cardiac arrest in the field with respiratory failure, on 09/12. INTERVAL HISTORY: Overnight, the patient's hemodynamics have continued to worsen. Her blood pressures continue to drop and she is currently on max dose norepinephrine, medium dose epinephrine, as well as vasopressin. In addition, she has received numerous fluid boluses. She is no longer overbreathing the vent which she was doing yesterday morning. REVIEW OF SYSTEMS: Unable to obtain since the patient is intubated. PHYSICAL EXAMINATION: Vital signs reviewed. Temperature 35 currently, pulse 74, respirations 20, BP 122/54, sats 99% on 60% FiO2 and 8 cm of PEEP. General: Intubated, sedated. Pupils are equal. Minimally reactive. She has significant scleral edema and anasarca. Chest clear bilaterally. LABORATORIES: Reviewed. CBC from this morning is still pending as is chemistry. Procalcitonin yesterday was 0.05 and a repeat procalcitonin from this morning is pending. Cultures show E. coli on urine culture which is pansensitive and sputum culture and Gram stain is negative. Chest x-ray shows increased bilateral pulmonary vascular congestion. ET tube is about 2.5 cm from the akbar. Arterial blood gas from this morning shows pH 7.29, pCO2 of 30, pO2 of 55 and bicarb of 14. ASSESSMENT AND RECOMMENDATIONS: 1. PEA cardiac arrest on September 12, 2016. 2. Acute ST-elevation myocardial infarction. 3. Acute hypoxic respiratory failure on mechanical ventilation since September 12. 4. Acute renal failure. 5. Suspected aspiration pneumonitis. 6. Escherichia coli urinary tract infection. 7. Diabetic ketoacidosis--improving. 8. Septic shock. A 75-year-old woman with diabetes was found down by medics and received a short period of CPR and one round of epinephrine, after which she was brought into the hospital. She was found to have evidence of an CT and taken to the propagator laborer emergently. There she was found to have multivessel disease but no evidence of 100% occlusions requiring intervention. She has been on hypothermia protocol since the night of September 12. Rewarming was started last night at 11 p.m. and she is currently at 35 degrees. Unfortunately, overnight, she seems to have worsened from a hemodynamic and respiratory standpoint. Oxygenation is now worse, FiO2 up to 60%. Pressor requirement has gone up and a third pressor was added overnight. I am not sure what the etiology of this is since reportedly the echocardiogram shows normal LV function. I just checked central venous O2 sat on a venous gas and it was 55%. Based on this, I would like to add dobutamine to see if improving cardiac output would help. Will start at about 2 mcg and increase it to 5 mcg, probably no higher, and watch for any improvement in blood pressure. I stopped her fentanyl drip to see if there is any evidence of neurologic response. My primary concern with this worsening hypotension is the potential for cerebral edema and brain herniation as a potential etiology. Her procalcitonin is negative, chest x-ray has no infiltrates, so I really do not think this could be septic shock. Also with cardiac function being normal, I would be surprised if this was all cardiogenic shock. One thing to consider would be getting a head CT if we can transport her down to see if there is any evidence of brain edema or nearing brain herniation. Also her urine output has been negligible--20 cc in the last 6 hours. She is practically in complete renal failure even though her creatinine is about 2. Electrolytes are okay although bicarb is 12, but improved from yesterday. This patient is progressing into multiorgan failure and I am concerned that she may not survive the night. It looks like her son seems to be the legal next of kin/decision maker and her daughter has some cognitive deficit due to brain mets from lung cancer and may not be capable of decision making. I will try to communicate with this on this morning and let him know how she is doing. She is currently a DNR so in the event of a cardiac arrest, she would not be resuscitated. CRITICAL CARE TIME: 60 minutes.
[2016-09-14] MEDS ORDERED: LacriLube S.O.P. 3.5 Gm Ophthalmic Ointment BOTH_EYES PRN (13:50)
[2016-09-14 14:02] LABS: Magnesium 1.5 mg/dL (1.6-2.6)
--- NOTE | 2016-09-14 17:10 | NUR ---
Re-warming completed @ 1400 Review of Therapeutic Hypothermia times: started 09/12 @ 2310. Rewarming started 09/13 @ 2310, completed 09/14 @ 1400.
--- NOTE | 2016-09-14 17:13 | ABG ---
DateTimeAnalyzed 17:07:00 -_ pH ____7.337 - 7.350 7.450 pCO2 ___27.4__ -mmHg 35.0 45.0 pO2 ___63.7__ -mmHg 69.0 116 HCO3- ___14.3__ -mmol/L 22.0 26.0 ABE __-10.0__ -mmol/L -2.0 2.0 tHb ___10.2__ -g/dL O2Hb ___92.5__ -% COHb ____1.3__ -% MetHb ____1.4__ -% sO2 ___95.1__ -% FIO2 ___50.0__ -% PEEP ____8.0__ -cmH2O Vt __450.0__ -L Drawn By LT - Date/Time Notified____ 17:12:00 -_ Spontaneous_RR ___20.0__ -b/min Oxygen Device 1 VENTILATOR - Notified By RC - Notified Whom KENA MANZANO RN - B 762 -mmHg tO2 ___13.3__ -Vol% Alirio test _Positive -
--- NOTE | 2016-09-14 17:15 | NUR ---
Norepi, Epi, Vasopressin gtts continuing at /near maximum doses.
[2016-09-14] MEDS ORDERED: Sodium Bicarb 8.4% Inj 150 MEQ in Dextrose 5% 1,000 ML IV SCH (17:25)
[2016-09-14] MEDS ORDERED: Sodium Chloride LOK Flush 10 mL Syringe IVFLUSH PRN ×2 (18:25)
--- NOTE | 2016-09-14 18:34 | NUR ---
Family gathered @ bedside Pt's daughter and both sons, as well as several grandchildren, are meeting after information from MDs. Daughter Yana, Son Jean-Pierre, son Pancho all in agreement to stop supportive measures and extubate pt to comfort care tonight, once all family members have arrived and able to have time with pt.
--- NOTE | 2016-09-14 18:55 | NUR ---
Family requests withdrawal of all care including pressors, ventilator, ETT. MD notified; @ bedside w/ pt's family.
--- NOTE | 2016-09-14 19:05 | NUR ---
Pressors stopped/Extubated per RT Family @ bedside. MD in attendance. BP 35/14 immediately after pressors stopped.
--- NOTE | 2016-09-14 19:11 | NUR ---
@ 1910 Asystole confirmed / Pronounced time of by w/ family @ bedside.
--- NOTE | 2016-09-14 21:28 | NUR ---
end of life care pt had per shift report at 191, authorization for release of body form completed, family here upon pt expiring and stated they would call in am with home name, family has since gone home, lines and garrido cath removed, post expiration care done and paperwork done per protocol, pt does not qualify for organ donation or autopsy,
--- NOTE | 2016-09-15 07:26 | HP ---
[address] [address] HISTORY AND PHYSICAL PATIENT: SANDRA BONNER : 1940 MR#: [id number] ADMIT: 09/12/2016 JOB ID: [id number] CHIEF COMPLAINT: Post cardiac arrest. HISTORY OF PRESENT ILLNESS: History was obtained from medical record review, her daughter and Dr. Bright. The patient is a 75-year-old woman with history of longstanding diabetes and smoker. Her EKG on June 19, 2009, showed normal sinus rhythm, rate 80 per minute. Normal EKG. The patient lives independently by herself in her own house. The last time her daughter saw the patient was three weeks ago. She looked well at that time. Two days ago, the daughter received a phone call from the patient. When she answered, the patient stated "who is this?" and then hung up the phone. When the daughter called back, she did not answer. Today on the welfare check, the patient was found to be unresponsive. Medics arrived at the scene at 7:28 p.m. She was resuscitated, intubated in the field and received one amp of epinephrine and one amp of bicarb. Her EKG showed atrial fibrillation with the rate of 129-142 beats per minute. Inferior ST- segment elevation. The patient arrived at [facility] at 8:24 p.m. She was started on cooling protocol and STEMI protocol was activated. The EKG at 8:31 p.m. shows sinus rhythm, rate [address]-segment elevation and anterior ST depression. Incomplete right bundle branch block. PAST SURGICAL HISTORY: Hip surgery. HOME MEDICATIONS: 1. Clopidogrel 75 mg daily. 2. Gabapentin 300 mg daily. 3. Insulin 70/30 subcu on sliding scale. 4. Lyrica 100 mg daily. ALLERGIES: No known allergies. SOCIAL HISTORY: The patient lives in her house independently. She smokes off and on all her life. FAMILY HISTORY: Unobtainable. REVIEW OF SYSTEMS: Unobtainable. PHYSICAL EXAMINATION: Reveals an elderly lady, unresponsive. She is on Levophed at 0.5 mcg/kg/minute. Blood pressure is 96/63. Pulse 69. Head and face have normal configuration. Arcus senilis. Anicteric sclerae. Dry mucosa. Neck: Supple. JVP is elevated. Chest: Normal expansion. Lungs are clear to auscultation anteriorly. Heart: Distant heart sounds. Abdomen: Soft. Bowel sounds absent. Extremities: No edema or clubbing. Neurology: Unresponsive. IMPRESSION: 1. Status post cardiopulmonary arrest. 2. Acute inferoposterior myocardial infarction. 3. Transient atrial fibrillation. 4. Lifelong smoker. PLAN: It is likely that the patient has acute ischemic event that caused ventricular arrhythmia and cardiopulmonary arrest. I discussed the clinical situation with her daughter. She agreed for emergent coronary angiogram and possible percutaneous coronary intervention. MAHI
--- NOTE | 2016-09-16 15:36 | PCM.DC.MED ---
Discharge Summary Date of Service September 16, 2016 Dates of Hospitalization Date of Hospital Admission September 12, 2016 at 21:14 Date of Discharge: September 14, 2016 Providers: Admitting Physician: Rodriguez Condon MD Primary Care Physician: Jenni Ortiz PA-C Attending Physician: Rodriguez Condon MD Diagnosis at Time of Discharge Diagnosis at Time of Discharge Out of hospital cardiac arrest, likely PEA based on EMS report/rhythm report. Acute hypoxic respiratory failure. Present on admission. Active. Shock, acute. Present on admission. Active. ST-Elevation myocardial infarction, acute. Present on admission. Active. Acute encephalopathy. Present on admission. Active. Diabetic Ketoacidosis, acute. Present on admission. Active Anion gap metabolic acidosis. Present on admission. Active Thrombocytopenia, acute. Present on admission. Active Acute kidney injury. Present on admission. Active. Urinary tract infection with E. coli, presumed acute. Present on admission. Active Hypernatremia, acute. Present on admission. Active Hypokalemia, acute. Present on admission. Active Diabetes mellitus, type 2, chronic. Poorly controlled. Elevated liver enzymes, acute. Present on admission. Active. Nicotine addiction, chronic. Poorly controlled. Consultations Cardiology Pulmonology/Critical Care Procedures XRay, CTs & MRIs (09/12/16) X-RAY CHEST ONE VIEW, PORTABLE IMPRESSION: ET tube 6.6 cm superior to the akbar. Dictated and approved by: Anya Hunt MD, PhD on 09/12/2016 at 21:05 (09/12/16) CT BRAIN WITHOUT CONTRAST IMPRESSION: 1. Indeterminate left caudate hypodensity. Appearance is suggestive of late subacute/early chronic infarction. As clinically indicated, MRI may be obtained. No priors are available for comparison. 2. Mild atrophy and chronic microvascular ischemic changes. Dictated and approved by: Jeanne Elizabeth M.D. on 09/13/2016 at 8:29 (09/13/16) X-RAY CHEST ONE VIEW, PORTABLE IMPRESSION: Minimal bibasilar streaky opacities. This could be sales representative groceries of atelectasis versus developing airspace disease such as pneumonia. Dictated and approved by: Jeanne Elizabeth M.D. on 09/13/2016 at 12:17 09/14/16 0713 X-RAY CHEST ONE VIEW, PORTABLE ([id number]) IMPRESSION 1. ET tube 1.8 cm superior to the akbar. 2. Increasing bibasilar opacities left greater than right suspicious for atelectasis versus developing pneumonia. Dictated by: Anya Hunt MD, PhD on 09/14/2016 at 9:20 . ECG 12 Lead Sinus rhythm with a rate of 71. Right bundle branch block. Widened Q waves with ST elevation in the inferior leads with associated peaked R waves and ST depression in leads V2 and V3. . Cardiac Echo Impression Date of Service: 09/13/16 0800 Interpretation Summary The left ventricular cavity is small and appears to be underfilled. Overall left ventricular systolic function is preserved. There are no obvious focal wall motion abnormalities noted but poor endocardial definition reduces the sensitivity for the detection of such. The mitral valve leaflets are mildly calcified. There is mild mitral annular calcification. There is no mitral regurgitation noted. There is a trivial pericardial effusion noted. There are no echocardiographic indications of cardiac tamponade. RV chamber size and function are both grossly normal. Pulmonary artery pressures cannot be estimated because of the lack of a measurable TR jet velocity. . Invasive Procedures 09/12/2016 PROCEDURE: 1. Retrograde left heart catheterization. 2. Selective angiography. RESULTS: 1. Selective angiography: a. The left anterior descending artery and circumflex artery have common ostia. b. The left anterior descending artery is transapical and has long, 70% to 80% stenosis in the midportion. c. The codominant circumflex artery has diffuse severe stenosis with 80% to 90% stenosis in the mid and distal circumflex artery. The first obtuse marginal branch has 80% stenosis in the proximal portion. d. The codominant right coronary artery has diffuse severe stenosis of 80% to 90% stenosis in the proximal and mid portions. 2. Left ventricular pressure is 169/7 mmHg. Aortic pressure is 157/60 mmHg. 3. Left ventricular end-diastolic pressure is 17 mmHg. 4. There is a 10 mm pressure gradient across the aortic valve. 5. The right common femoral angiogram demonstrated severe eccentric 80% stenosis of the right common femoral artery with heavy calcification. The right superficial femoral artery has severe 95% stenosis in the proximal portion. The right profunda artery has minor irregularity. CONCLUSION: 1. Severe triple-vessel coronary artery disease, typical of diabetes. 2. There is a 10 mm pressure gradient across the aortic valve. 3. Left ventricular end-diastolic pressure is 17 mmHg. 4. Severe stenosis of the right common femoral artery and proximal portion of the right superficial femoral artery. Rodriguez Condon MD 09/12/16 2209 . Other Diagnostics DateTimeAnalyzed 00:07:00 -_ pH ____7.008 - 7.350 7.450 pCO2 ___23.1__ -mmHg 35.0 45.0 pO2 168 DateTimeAnalyzed 16:59:00 -_ pH ____7.177 - 7.350 7.450 pCO2 ___37.6__ -mmHg 35.0 45.0 pO2 ___87.6 DateTimeAnalyzed 23:49:00 -_ pH ____7.274 - 7.350 7.450 pCO2 ___29.7__ -mmHg 35.0 45.0 pO2 ___53.5 DateTimeAnalyzed 17:07:00 -_ pH ____7.337 - 7.350 7.450 pCO2 ___27.4__ -mmHg 35.0 45.0 pO2 ___63.7 Brief History The following is taken from Dr. Llamas's H&P dated 09/12/2016: Fernanda Mcgee is a 75 yo female with Hypertension, Fibromyalgia, Chronic anemia and diabetes presenting to [facility] emergency department via EMS due to cardiac arrest. The pt called her daughter three days ago and patient was acting strangely and asking who she was talking to and hanged up. Son tried calling her home but no answer so the daughter in law called for a welfare check. The son last spoke to her on Mother's Day and she mentioned she was sick but did not give any further details. EMS arrived at 1928 today and reports her looking around but was unresponsive. CPR was initiated. They have given her one round of epinephrine and bicarbonate. No paralytics were administered. She was intubated in the field and brought to [facility] for evaluation Patient smokes daily and is a Diabetic on insulin. Lives alone. No history of illicit drugs or Alcoholism Case discussed with Dr Handley, EKG showed ST elevation triggering a STEMI alert and Dr Mckeon took patient to the film laboratory technician. Several labs abnormalities noted with hyperglycemia and Renal failure noted. Patient admitted to the ICU Hospital Course Disease specific interventions as detailed below, but briefly: Patient presented on 09/12/2016 after being found unresponsive at home by EMS. It was unclear how long she was down prior to their arrival. Patient was noted to be in cardiac arrest for which she received doses of epinephrine and sodium bicarbonate as part of her resuscitation by emergency services. They also initiated CPR and airway was placed with which pulses were regained. There was really no mention of rhythm based on the description, and absence of shock mentioned in the emergency department note lead to presumption this was a PEA arrest. Echocardiogram was immediately performed soon following arrival at ER, but endocardial definition was poor limiting the exam. Patient was taken to the cardiac catheterization lab to assess for possibility of intervention given findings on EKG consistent with inferior posterior VT with ST elevation. Multivessel disease presents without definitive total occlusion. PCI not performed at that time. Patient was initiated on amiodarone drip and subsequently admitted to the intensive care unit intubated following initiation of cooling protocol given her lack of response with ROSC. Subsequent laboratory evaluation along with blood gas analysis demonstrated the presence of diabetic ketoacidosis with concomitant lactic acidosis. In consultation with cardiology in the intensive care unit physicians, it is suspected that her significant acidosis lead to coronary spasm in the setting of almost total occlusion in multiple vessels leading to her ST elevation VT. Patient initiated on insulin drip with high volume fluid resuscitation, and as this did not significantly improve her acid base status, nor her shoulders, bicarbonate drip was initiated. Acid base status improved somewhat with bicarbonate drip ( as demonstrated and blood gases above), but unfortunately this did not contribute to overall improvement and her status. Oxygenation still suffered significantly, and patient developed ARDS further complicating her course. Despite efforts noted, patient developed additive multi-organ failure ( including the renal, hepatic, cardiac, respiratory, CORPORATE CONSULTANT systems) in the setting of her significant shock (this was despite maximal pressor support including maxed dose norepinephrine, high dose epinephrine, vasopressin, and dobutamine was added). Given her catastrophic decline, and in the setting of an increasingly poor prognosis with strong suspicion for anoxic brain injury, discussion was had with family, and decision made to compassionately withdraw care. Throughout her course, she was sedated on the ventilator (but never paralyzed) with pain control in the form of IV narcotics. Ceftriaxone was initiated early on due to findings on UA suggestive of urinary tract infection. Maximum dose insulin drip was initiated early, and continued until the time of compassionate withdrawal. Electrolytes were routinely checked and replaced as needed. Patient on 09/14/2016 at 1911. Family was present. Out of hospital cardiac arrest, likely PEA. Present on admission. - Likely secondary to STEMI and DKA. Patient found unresponsive by EMS on 09/12 at approximately 1930. CPR initiated and patient intubated in the field. Received one round of epinephrine and bicarbonate with return of spontaneous rhythm. - On arrival, ST-elevation was noted on EKG and patient underwent emergent cardiac catheterization which revealed multivessel disease. No intervention was done as patient needs bypass surgery and is currently not stable for transfer or surgery. - Admitted to CCU on 09/12 and cooling protocol initiation with goal temp reached at 2300. * Currently rewarming, and set to complete 09/14y at 1700. - Cardiology is following, appreciate recommendations and expertise. -Stopped amiodarone 09/14 per cardiology recommendation, and as patient is rewarming well without arrhythmia. Acute hypoxic respiratory failure. Present on admission. Active. - Secondary to cardiac arrest and patient intubated in the field. No evidence of pulmonary infection or edema. - ABG shows severe respiratory acidosis. pH 7.07, pCO2 33.7, pO2 121, HCO3 9.4. - Continue Ventilator support and management, per Pulm/CCU team. Will follow recommendations. - Sedation: fentanyl, propofol. - Monitor ABG -Oxygenation continues to be an issue on this patient who is quite sick. ARDS is certainly a contributing factor in her clinical decline. Shock, acute. Present on admission. Active. - Likely cardiogenic secondary to STEMI with cardiac arrest. Possibly with an infectious component, urine culture is growing gram negative rods. Blood cultures are pending. - Hypotensive and requiring pressor support. Norepinephrine at 1mcg/kg. Vasopressin added 09/13. Epinephrine added 09/14. Dobutamine added 09/14. Patient is effectively maxed out on pressors, and continues to be in shock. - Fluid resuscitation complicated by DKA with hyperglycemia and extremely low bicarb. - Lactic acid normalized initially, but worsened 09/14 requiring increasing IVF. - Continue bicarb and insulin drip. - Pulm/CCU is following, appreciate recommendations. - Stopped normal saline due to hypernatremia, free water deficit. Anion gap metabolic acidosis. Present on admission -Likely a combination of the DKA and lactic acidosis in the setting of shock -Management as above Thrombocytopenia, acute. Present on admission -Most likely secondary to her significant and systemic shock -Thrombocytopenia within 24h (consideration for holding DVT ppt Heparin, but will likely continue given hypercoagulability during cooling/rewarming). -Continue to monitor lab ST-Elevation myocardial infarction, acute. Present on admission. Active. - Patient with significant cardiac risk factors: uncontrolled diabetes with DKA , hypertension, hyperlipidemia and tobacco use. - Multivessel coronary artery disease noted on cardiac cath with possible referral for bypass surgery if patient recovers. Reevaluate when rewarmed. - Continue aspirin, clopidogrel, statin. Per Cardiology, appreciate expertise. - Continue management per Cardiology, aspirin, clopidogrel, statin and amiodarone for 24hrs (amiodarone stopped 09/14). Acute encephalopathy. Present on admission. Active. - Likely due to anoxic brain injury. Etiologies considering: metabolic from DKA and subsequent cardiac arrest. Uncertain if neurologic deficit persists. Per family, patient has not quite been herself lately. - Continue cooling protocol and monitor neurologically - Treat underlying cause. - Consider EEG and Neurology consult a day or 2 after rewarming complete. Diabetic Ketoacidosis, acute. Present on admission. Active - Glucose 741 on admission with anion gap 35, positive urine ketones and ABG as above. - Continue DKA insulin protocol until gap closes, then transition to subq insulin. - BMP q4h, replete electrolytes per protocol - Pulm/CCU is following, appreciate recommendations for IV fluids. Hypernatremia, acute. Present on admission. Active and improved today - Likely secondary to metabolic acidosis, fluid resuscitated with normal saline. - Change normal saline to 1/2 NS, limit amount of D5 due to hyperglycemia. - Avoid rapid correction, < 10mEq/L/day. - Pulm/CCU is following, appreciate recommendations for IV fluids. - BMP q4 Hypokalemia and hypomagnesemia, acute. Present on admission. Active and improved today - Likely due to intracellular shift secondary to insulin/DKA. - Potassium 2.5, received 40mEq IV x2. - BMP q4h, replete as needed. Acute kidney injury with metabolic acidosis. Present on admission. Active. - Likely prerenal azotemia with possible acute tubular necrosis. Possible Chronic kidney disease due to diabetic nephropathy and hypertensive nephrosclerosis. - Recommendations per Pulm/CCU for IV fluids and bicarb drip appreciated. - Follow BMP - Consider Nephrology consult if renal function continues to decline. -Minimal urine output in the setting of significant pressors Urinary tract infection, unknown chronicity. Present on admission. Active - Continue CTX for pansensitive Escherichia coli Diabetes mellitus, type 2. Present on admission. Poorly controlled. - HbA1c 14.1. - Hold home insulin glargine/aspart and linagliptin. - Management as above for DKA. Elevated liver enzymes, acute. Present on admission. Active. - Likely due to shock liver. - Management as above. - Follow CMP - Consider Hepatitis panel Nicotine addiction, chronic. Present on admission. Active - Defer smoking cessation counseling until patient awake. Exam Vital Signs (Last) Date Time Temp Pulse Resp B/P Pulse Ox O2 Delivery O2 Flow Rate FiO2 09/14/16 16:30 37.1 99 20 102/63 98 Mechanical Ventilator 50 Exam Physical exam performed in the morning of the day the patient : General: Sedated and mechanically ventilated on hypothermia protocol (rewarming) . Completely unresponsive. HEENT: Pupils equal, round, and minimally/sluggishly reactive to light. sclera are significantly edematous without conjunctival injection. Mucous membranes moist/pink. Neck: Supple, trachea midline, no lymphadenopathy or thyromegaly. Cardiovascular: Regular rate (somewhat tachycardic in the 90s) and rhythm with no murmurs, rubs, or gallops appreciated Pulmonary: Course rhonchi bilaterally and diffusely (report of shahid/white secretions from ETT). Abdomen: Soft, nondistended, no masses appreciated. No BT appreciated. Extremities: Dirt and possibly dried blood underneath fingernails on the left hand. Upper/lower ext cool to the touch with no cyanosis or edema. Please note significant pallor and coldness of the hands and feet to the level of the mid forearm and lower legs bilaterally. No capillary refill noted peripherally. Nonblanchable purple macular patch on plantar surface of R great toe. Skin: no rashes or ulcerations noted. Neurological: Unresponsive to all stimuli (please note the patient is not paralyzed). Test 09/12/16 20:45 09/12/16 20:50 09/12/16 20:56 09/13/16 13:45 Activated Partial Thromboplast Time 34.2sec (22.8-33.0) Hemoglobin A1c 14.1% (4.8-5.6) Thyroid Stimulating Hormone (TSH) 3.210uIU/mL (0.450-4.500) Urine Color Yellow (YELLOW) Urine Appearance Turbid (CLEAR,HAZY) Urine pH 6.0 (5.0-8.0) Urine Specific [place] 1.025 (1.003-1.035) Urine Protein 100mg/dL (NEG,TRACE) Urine Glucose (UA) 1000mg/dL (NEGATIVE) Urine Ketones 80mg/dL (NEGATIVE) Urine Occult Blood Large (NEGATIVE) Urine Nitrite Negative (NEGATIVE) Urine Bilirubin Negative (NEGATIVE) Urine Urobilinogen Normalmg/dL (NORMAL) Urine Leukocyte Esterase Trace (NEGATIVE) Urine RBC 3-10/hpf (0-2) Urine WBC 11-50/hpf (0-5) Urine Epithelial Cells Few/hpf (NONE-MOD) Urine Crystals None seen (NONE SEEN) Urine Bacteria Many/hpf (NONE-FEW) Urine Hyaline Casts None/lpf (NONE) Urine Granular Casts None seen (NONE SEEN) Urine Waxy Casts None seen (NONE SEEN) Urine Red Blood Cell Casts None seen (NONE SEEN) Urine White Blood Cell Casts None seen (NONE SEEN) Urine Mucus None seen (None Seen) Urine Trichomonas None seen (NONE SEEN) Urine Yeast None (NONE SEEN) Urinalysis Comment None Urine Culture Reflexed Indicated Osmolality 368 (275-300) Prealbumin 10mg/dL (20-40) Hold Blue Top Tube Received (Received) Hold Bass Top Tube Received (Received) Test 09/13/16 20:32 09/14/16 02:55 09/14/16 07:10 09/14/16 07:38 Prothrombin Time 14.0sec (8.1-12.5) Prothromb Time International Ratio 1.30ratio Total Bilirubin 0.3mg/dL (0.0-1.2) Aspartate Amino Transf (AST/SGOT) 116U/L (0-50) Alanine Aminotransferase (ALT/SGPT) 44U/L (0-32) Alkaline Phosphatase 260U/L (25-165) Total Creatine Kinase 1062U/L (21-215) Creatine Kinase MB 121.7ng/mL (0.0-5.3) Creatine Kinase MB % 11.5% (0.0-5.0) Troponin T 8.36ug/L (0.0-0.011) Total Protein 2.7g/dL (6.4-8.4) Band Neutrophils % 14% (1-5) Metamyelocytes % 5% (0-0) Myelocytes % 1% (0-0) Phosphorus Level 2.6mg/dL (2.5-4.9) White Blood Count 7.8th/mm3 (3.8-10.1) Red Blood Count 3.45mil/mm3 (3.90-5.20) Hemoglobin 10.1g/dL (12.0-15.6) Hematocrit 27.0% (35.0-46.0) Mean Corpuscular Volume 78.3fL (81-100) Mean Corpuscular Hemoglobin 29.3pg (27.0-35.0) Mean Corpuscular Hemoglobin Concent 37.4% (32.0-37.0) Red Cell Distribution Width 13.4% (12.3-15.4) Platelet Count 66bil/L (150-400) Neutrophils (%) (Auto) 81.8% (40-74) Lymphocytes (%) (Auto) 8.6% (14-46) Monocytes (%) (Auto) 7.3% (4-12) Eosinophils (%) (Auto) 0.9% (0-5) Basophils (%) (Auto) 0% (0-3) Hold Purple Top Tube Received (Received) Albumin 1.3g/dL (3.4-5.0) Procalcitonin 17.34ng/mL (0.00-0.08) Hold [place] Top Tube Received (Received) Test 09/14/16 13:10 09/14/16 14:47 Sodium Level 142mEq/L (134-144) Potassium Level 4.1mEq/L (3.5-5.2) Chloride Level 109mEq/L (97-108) Carbon Dioxide Level 19mmol/L (18-29) Blood Urea Nitrogen 41mg/dL (8-27) Creatinine 2.09mg/dL (0.57-1.00) Estimat Glomerular Filtration Rate 33mL/min (>59) Glucose Level 281mg/dL (60-99) Calcium Level 6.3mg/dL (8.5-10.1) Magnesium Level 1.5mg/dL (1.6-2.6) Lactic Acid Level 5.8mmol/L (0.4-2.0) Microbiology Results 09/12/16 Blood Culture-Escherichia coli (sensitivities pending) 09/12/16 MRSA (PCR) - negative 09/12/16 Urine Culture - Escherichia coli (pansensitive) 09/12/16 sputum culture-beta strep group B, staph aureus (suspect introduction during intubation, but uncertain given patient's precipitous decline whether contributing to overall infectious/shock/respiratory failure picture) Discharge Medications Discharge Medications Aspirin (Aspirin) 81 Mg Tablet 81 MG PO DAILY (Reported) Clopidogrel (Clopidogrel) 75 Mg Tablet 75 MG PO DAILY (Reported) Gabapentin (Gabapentin) 300 Mg Capsule 300 MG PO TID (Reported) Insulin Glargine (Lantus U100 Solostar Insulin Pen) 100 Unit/1 Ml Insuln.pen 1 UNIT SUBQ DAILY (Reported) Miscellaneous Medications Insulin Aspart (NovoLOG U-100 Pen) 100 Unit/Ml Insuln.pen (Reported) Linagliptin (Tradjenta) 5 Mg Tablet 5 MG PO (Reported) Followup Plan Disposition: Patient in hospital. Attending Statement The patient was discussed together with Dr. Sharma on 09/14/2016 and I agree with the history as outlined in the note above. . copies to: Jenni Ortiz PA-C, Collin T DO September 16, 2016 15:36 Idris Weems MD September 22, 2016 07:59 Insulin Glargine (Lantus U100 Solostar Insulin Pen) 100 Unit/1 Ml Insuln.pen 1 UNIT SUBQ DAILY (Reported) Miscellaneous Medications Insulin Aspart (NovoLOG U-100 Pen) 100 Unit/Ml Insuln.pen (Reported) Linagliptin (Tradjenta) 5 Mg Tablet 5 MG PO (Reported) Del Bajwa DO September 16, 2016 15:36
== END 2016-09-14 19:11 | disposition expired ==
LOC: SED 20:24 → CCU 21:14
PROVIDERS: ADMIT Internal Medicine Interventional Cardiology; ATTEND Hospitalist
PROC: 5A1945Z Respiratory Ventilation, 24-96 Consecutive Hours (ICD-10-PCS; principal; 2016-09-12)
PROC: 4A033R1 Measurement of Arterial Saturation, Peripheral, Percutaneous Approach (ICD-10-PCS; 2016-09-12)
PROC: 4A023N7 Measurement of Cardiac Sampling and Pressure, Left Heart, Percutaneous Approach (ICD-10-PCS; 2016-09-12)
PROC: B2111ZZ Fluoroscopy of Multiple Coronary Arteries using Low Osmolar Contrast (ICD-10-PCS; 2016-09-12)
PROC: 03HY32Z Insertion of Monitoring Device into Upper Artery, Percutaneous Approach (ICD-10-PCS; 2016-09-12)
DX: I21.11 ST elevation (STEMI) myocardial infarction involving right coronary artery (principal); J96.01 Acute respiratory failure with hypoxia; E13.10 Other specified diabetes mellitus with ketoacidosis without coma; K72.00 Acute and subacute hepatic failure without coma; N17.9 Acute kidney failure, unspecified; N39.0 Urinary tract infection, site not specified; E87.0 Hyperosmolality and hypernatremia; G93.1 Anoxic brain damage, not elsewhere classified; E87.6 Hypokalemia; F17.210 Nicotine dependence, cigarettes, uncomplicated; R57.0 Cardiogenic shock; D69.6 Thrombocytopenia, unspecified; B96.20 Unspecified Escherichia coli [E. coli] as the cause of diseases classified elsewhere; I10 Essential (primary) hypertension; I25.10 Atherosclerotic heart disease of native coronary artery without angina pectoris; Z79.4 Long term (current) use of insulin